=== PATIENT | female | born 1945 | race Caucasian/White ===

== ENCOUNTER 2016-08-22 01:46 | Observation (INO) ==
[2016-08-22 02:12] LABS: Basophils % 0.6 %; Eosinophils # 0.1 K/mcL (0.0-0.6); Eosinophils % 1.3 %; Hemoglobin 12.8 g/dL (11.5-15.4); Immature Granulocytes % 0.4 % (0-4); Lymphocytes # 2.5 K/mcL (0.6-4.6); Lymphocytes % 35.6 %; Mean Corpuscular Volume 90.5 fL (83.0-100.0); Mean Platelet Volume 9.9 fL (9.4-12.4); Monocytes # 0.9 K/mcL (0.0-1.3); Monocytes % 12.4 %; Neutrophils # 3.5 K/mcL (1.6-8.9); Platelet Count 217 K/mcL (140-400); Red Blood Count 4.42 M/mcL (3.82-4.97); Red Cell Distribution Width 14.5 % (11.5-14.5); Segmented Neutrophils % 49.7 %
--- NOTE | 2016-08-22 02:14 | Emergency Department Note ---
Disposition Clinical Impression: Chest pain Qualifiers: Chest pain type: unspecified Qualified Code(s): R07.9 - Chest pain, unspecified Disposition: Admitted As Inpatient Condition: Undetermined Referrals: NO,PCP [Primary Care Provider] - Forms: ED Satisfaction Letter Time of Disposition: 02:42 Chest Pain HPI - General Chief Complaint: ED Chest Pain Stated Complaint: CP Time Seen by Provider: 08/22/16 01:56 Source: patient Mode of arrival: ambulatory Limitations: no limitations Vital Signs Reviewed: Yes Nursing Notes Reviewed: Yes - History of Present Illness HPI Narrative: 70-year-old female with history of CAD, hypertension, hyperlipidemia, arrives [facility] emergency Department complaining of retrosternal chest pain that started yesterday morning when she first woke up and ambulated to the bathroom. The patient states that at the same time she had an elevation in her blood pressure. The patient states that she took 2 aspirin at that time. She is surgery feeling better after couple hours. The patient denied any other associated symptoms including dyspnea, nausea, vomiting, diaphoresis. The patient does state that she had a recent cardiac catheter back in June 2016 which revealed a mild disease, 20 and 30% lesions. She had no stents placed at that time. The patient states she takes her medications on a regular basis. She denies any other complaints or concerns at this time. Duration: intermittent, now resolved Pain Location: substernal Severity scale (1-10): 0 Quality: tightness Improves with: nothing Worsens with: exertion Treatments prior to arrival chest pain: aspirin - Related Data On Oral Contraceptives: No Home Medications Medication Instructions Recorded Confirmed Albuterol Sulfate [Proair Hfa] 1 puff IH BID 02/28/16 02/28/16 Alprazolam [Xanax 1 MG Tablet] 1 mg PO TID 02/28/16 02/28/16 Amlodipine [Norvasc] 2.5 mg PO DAILY 02/28/16 02/28/16 Estradiol 0.5 mg PO DAILY 02/28/16 02/28/16 Fexofenadine HCl [Allergy Relief] 180 mg PO DAILY 02/28/16 02/28/16 Fluticasone Propionate Nasal 2 spr NS DAILY 02/28/16 02/28/16 [Flonase] Gabapentin 600 mg PO TID 02/28/16 02/28/16 Iron Polysaccharide Complex [Pro 180 mg PO BID 02/28/16 02/28/16 Fe] Lisinopril [Zestril] 40 mg PO DAILY 02/28/16 02/28/16 Nitroglycerin 0.4 mg SL Q5M PRN 02/28/16 02/28/16 Oxybutynin [Ditropan] 5 mg PO BID 02/28/16 02/28/16 Oxycodone HCl 10 mg PO Q6H PRN 02/28/16 02/28/16 Propranolol HCl 40 mg PO DAILY 02/28/16 02/28/16 Ranitidine HCl [Zantac] 150 mg PO BID 02/28/16 02/28/16 Zolpidem [Ambien] 10 mg PO HS 02/28/16 02/28/16 Previous Rx's Medication Instructions Recorded Atorvastatin [Lipitor] 40 mg PO HS 30 Days 02/29/16 Carvedilol [Coreg] 3.125 mg PO BIDWM 30 Days 02/29/16 Isosorbide MONOnitrate (24 HR) 30 mg PO DAILY 30 Days 02/29/16 [Imdur] Allergies Allergy/AdvReac Type Severity Reaction Status Date / Time Iodinated Contrast Media - Allergy Hives Verified 08/22/16 01:51 Oral and [Iodinated Contrast Media - IV Dye] morphine Allergy Anaphylaxis Verified 08/22/16 01:51 Penicillins Allergy Anaphylaxis Verified 08/22/16 01:51 Review of Systems: Review of Systems Constitutional: Denies fevers, chills, night sweats HEENT: Denies headache, Respiratory: Denies cough, sputum change, hemoptysis, dyspnea Cardiac: Admits to chest pain, pressure, Denies palpitations, dyspnea on exertion, Admits to pedal edema Gastrointestinal: Denies abdominal pain, changes in bowel habits, vomiting, nausea, Genitourinary: Denies dysuria, hematuria, nocturia, change in frequency, urgency, incontinence Neurologic: Denies headaches, dizziness, syncope, focalized weakness, paraesthesias, weakness Musculoskeletal: Denies back pain, joint pain, myalgias All systems ED: reviewed and negative except as stated. Chest Pain PMH - Past Medical History Medical history: Reports: arthritis, asthma, COPD, fibromyalgia, GERD, GI bleed , hyperlipidemia, hypertension, kidney stones, osteoporosis, renal disease, other Surgical history: Reports: appendectomy, cataract, cholecystectomy, hysterectomy , JANINE/BSO, other Psychiatric history: Reports: anxiety, depression, panic disorder, other - Social History Smoking Status: Current every day smoker Alcohol use: Reports: none Drug use: Reports: none Physical Exam Physical Exam: General: Patient alert, no acute distress, not lethargic HEENT: Head normal inspection, atraumatic, PERRLA, oropharynx grossly intact and normal, trachea midline, no JVD Chest: Nontraumatic, nontender, normal chest rise CV: RRR with no murmurs, rubs, gallops Respiratory: Coarse breath sounds on auscultation bilaterally, no rales, rhonchi , wheezes. Abdomen: Normal inspection, Normal bowel sounds 4 quadrants, nontender to palpation : Patient deferred Extremities: Normal inspection, full range of motion, appropriate pulses, capillary refill under 2 seconds Neurological: Patient alert and oriented 3, cranial nerves II through XII grossly intact, GCS 15 Skin: Warm, intact, no rashes noted - General Limitations: no limitations General appearance: alert Course Vital Signs Temperature 98.3 F 08/22/16 01:48 Pulse Rate 76 08/22/16 01:48 Respiratory Rate 18 08/22/16 01:48 Blood Pressure 146/78 08/22/16 01:48 O2 Sat by Pulse Oximetry 100 08/22/16 01:48 Temperature 98.3 F 08/22/16 01:48 Pulse Rate 75 08/22/16 01:58 Respiratory Rate 14 08/22/16 01:58 Blood Pressure 173/84 08/22/16 01:58 O2 Sat by Pulse Oximetry 95 08/22/16 01:58 Oxygen Delivery Oxygen Delivery Room Air Chest Pain - MDM Narrative Medical decision making narrative: Patient's workup here in the emergency department demonstrates no acute process. Given the patient's previous medical history and symptoms I am concerned for ACS. At this time will admit the patient to the hospital for trending troponins. Accepted by Dr. Woodall. - Medical Records Medical records reviewed: Yes I reviewed the patient's medical records. - Lab Data Lab results reviewed: Yes I reviewed the patient's lab results. Result diagrams: 08/22/16 01:58 08/22/16 01:58 Lab Results 08/22/16 08/22/16 08/22/16 Range/Units 01:58 01:58 01:58 WBC 6.9 (4.3-11.1) K/mcL RBC 4.42 (3.82-4.97) M/mcL Hgb 12.8 (11.5-15.4) g/dL Hct 40.0 (35.3-44.9) % MCV 90.5 (83.0-100.0) fL MCH 29.0 (28.0-33.3) pg MCHC 32.0 (31.6-35.5) g/dL RDW 14.5 (11.5-14.5) % Plt Count 217 (140-400) K/mcL MPV 9.9 (9.4-12.4) fL Immature Gran % 0.4 (0-4) % Seg Neutrophils % 49.7 % Lymphocytes % 35.6 % Monocytes % 12.4 % Eosinophils % 1.3 % Basophils % 0.6 % Neutrophils # 3.5 (1.6-8.9) K/mcL Lymphocytes # 2.5 (0.6-4.6) K/mcL Monocytes # 0.9 (0.0-1.3) K/mcL Eosinophils # 0.1 (0.0-0.6) K/mcL Basophils # 0.0 (0.0-0.2) K/mcL Sodium 137 (136-145) mEq/L Potassium 4.0 (3.5-4.5) mEq/L Chloride 102 (98-109) mEq/L Carbon Dioxide 23 (19-29) mEq/L BUN 11 (7-20) mg/dL Creatinine 1.07 (0.57-1.11) mg/dL Est GFR ( Amer) > 60 (> 60) Est GFR (Non-Af Amer) 51 L (> 60) BUN/Creatinine Ratio 10 (6-26) Glucose 97 (70-99) mg/dL Calculated Osmolality 283 (280-300) Calcium 9.2 (8.6-10.8) mg/dL Troponin I 0.02 (0-0.03) ng/mL - Radiology Data Radiology results reviewed: Yes I reviewed the patient's radiology results. - EKG Data EKG attestation: Yes I reviewed and interpreted this EKG. EKG results narrative: Heart rate 74 bpm. MD interval 189 ms. QTc 420 ms. Normal axis. Normal sinus rhythm. No ST elevation or ST depression noted. Flipped T waves in V6 which is new from EKG from 02/29/2016. Heart Score - Score History: Moderately Suspicious EKG: Non Specific repolarisation Disturbance Age: Greater than 65 Risk Factors: Equal/Greater than 3 risk factor or history of atherosclerotic disease Troponin: Less than normal limit HEART Score Total: 6
--- NOTE | 2016-08-22 02:16 | Emergency Department Note ---
START Narrative - START START: I examined this patient and my medical decision-making was reviewed with the FLOOR ATTENDANT/PA/Advanced Practice Nurse/Resident Physician. I agree with the documented findings, disposition and treatment plan as described except to the extent set forth below. ED attending note: Patient seen with emergency medicine resident Dr. Ariza. Please see a copy of his note for details of the H&P, evaluation, management and disposition of this patient. We independently had [id number] contact with the patient Briefly: 70-year-old female with multivessel coronary artery disease. Last catheterization was told by her lockstitch front maker 4 months ago. There were no stents placed but no surgery recommended. Patient has had chest pain since yesterday morning after she got up. Patient appears nontoxic but slightly ill EKG shows T-wave inversion throughout the lateral leads especially V4 5 and 6 which appear to be new compared to an old EKG. Patient will get troponin CBC chemistry panel and a chest x-ray admission is anticipated. Disposition pending.
[2016-08-22 02:25] LABS: BUN/Creatinine Ratio 10 (6-26); Blood Urea Nitrogen 11 mg/dL (7-20); Calcium 9.2 mg/dL (8.6-10.8); Carbon Dioxide 23 mEq/L (19-29); Chloride 102 mEq/L (98-109); Glucose 97 mg/dL (70-99); Osmolality,Calculated 283 (280-300); Sodium 137 mEq/L (136-145); eGFR For African Americans > 60 (> 60); eGFR For Non-African Americans 51 (> 60)
[2016-08-22] MEDS ORDERED: *HR* HYDROmorphone (PF) 1 MG/ML SYRINGE IVP ONE (03:16)
[2016-08-22] MEDS: Nicotine 14 MG PATCH.TD24 TD SCH ×2 (03:33→21:46)
[2016-08-22] MEDS ORDERED: ALPRAZolam 1 MG TABLET PO PRN (05:52)
[2016-08-22] MEDS ORDERED: Naloxone 0.4 MG/ML INJ IVP PRN (07:35)
[2016-08-22] MEDS ORDERED: Nitroglycerin 0.4 MG TAB.SUBL SL PRN (07:37)
--- NOTE | 2016-08-22 07:44 | Internal Med History&Physical ---
Date of Encounter: 08/22/16 Time of Encounter: 07:44 Assessment and Plan (1) Chest pain, rule out acute myocardial infarction Current visit: No Status: Acute chest pain: Persistent chest pain, nonradiating, localized, and has a aggravating and relieving factors. Anginal chest pain. Was previously admitted in February 2016 for similar complaints. Noted that maximum troponin rise is 0.02. EKG reviewed. Echo: EF : 60-65%. Mild Diastolic dysfunction, No RWMA ( 02/28/2016) Cardiac cath:Mild Coronary disease . EF :65% ( 02/28/2016) Plan: -ASA -Beta blockers -Statins -Trend troponin - lipid panel in the morning -Possible home soon. (2) Hypertension Current visit: No Status: Chronic Will resume home medication. Qualifiers: Hypertension type: essential hypertension Qualified Code(s): I10 - Essential (primary) hypertension (3) Dyslipidemia Current visit: No Status: Chronic On statin and we will continue same (4) COPD (chronic obstructive pulmonary disease) Current visit: No Status: Chronic Chronic COPD. Active smoker. Not willing to quit smoking. We will try tomorrow again to convince her to quit smoking Qualifiers: COPD type: emphysema Emphysema type: unspecified Qualified Code(s): J43.9 - Emphysema, unspecified (5) DVT prophylaxis Current visit: Yes Status: Acute Abdomen: Medical decision making: This patient is a mild to moderate discomfort worsening , in spite of being on appropriate medication. Internal Medicine - H&P: HPI Chief complaint: chest pain Admitted From: Emergency Dept Plans for Post Hospital Care: Home History of present illness: 70/F PCP: Jaden Srinivasan. HPI: Patient was complaining of chest pain on morning around 7 AM when she got up. The pain was retrosternal in nature, nonradiating, localized, sharp , worsened with the breathing and relieved by rest. At that time patient measured her blood pressure and it was 218/126. Patient took her regular blood pressure medication and other medications and she noted that gradually her blood pressure settled down to the baseline. Patient did not call her PCP/911. Yesterday on a Wednesday around 4 PM in the evening patient had a similar episode of her chest pain. As per patient: Mild pain on Wednesday was much worse as compared to and that is the reason I decided to go to emergency room. Patient denies short of breath, dizziness, palpitation, nausea, vomiting, abdominal pain and diarrhea. Workup in the emergency room: Patient was evaluated in the emergency room. Baseline labs are drawn. Hospitalist was called to admit the patient to rule out ACS. Reason for admission: Chest pain to rule out ACS, TIMI3 Family history: Noncontributory Past Med Surg Social Fam HX - Past Medical History Medical history: arthritis, asthma, COPD, fibromyalgia, GERD, GI bleed, hyperlipidemia, hypertension, kidney stones, osteoporosis, renal disease, other Psychiatric history: anxiety, depression, panic disorder, other - Past Surgical History Surgical History: appendectomy, cataract, cholecystectomy, hysterectomy, JANINE/BSO , other - Social History Smoking Status: Current every day smoker Packs per day: 1/2-3/4 Smokeless Tobacco Status: No Alcohol use: none Drug use: none - Family History Father Living Status: Hx Family Cardiac Disorders: Yes Mother Living Status: Hx Family Cardiac Disorders: Yes (Bypass, HTN, HLD) Hx Family Respiratory Disorders: No Hx Family Cancer: No Hx Family GI Disorders: No Hx Family Genitourinary Disorders: No Hx Family Endocrine Disorder: Yes (DM) Hx Family Musculoskeletal Disorders: No Hx Family Neuromuscular Disorders: No Hx Family Neurologic Disorders: No Hx Family HEENT Disorders: No Hx Family Autoimmune Disorders: No Hx Family Reproductive Disorders: No Hx Family Psychosocial Disorders: No Hx Family Medical Disorders: No Internal Medicine - H&P: Meds Albuterol Sulfate [Proair Hfa] 1 puff IH BID 02/28/16 [History] Alprazolam [Xanax 1 MG Tablet] 1 mg PO TID 02/28/16 [History] Amlodipine [Norvasc] 2.5 mg PO DAILY 02/28/16 [History] Estradiol 0.5 mg PO DAILY 02/28/16 [History] Fexofenadine HCl [Allergy Relief] 180 mg PO DAILY 02/28/16 [History] Fluticasone Propionate Nasal [Flonase] 2 spr NS DAILY 02/28/16 [History] Gabapentin 600 mg PO TID 02/28/16 [History] Iron Polysaccharide Complex [Pro Fe] 180 mg PO BID 02/28/16 [History] Lisinopril [Zestril] 40 mg PO DAILY 02/28/16 [History] Nitroglycerin 0.4 mg SL Q5M PRN 02/28/16 [History] Oxybutynin [Ditropan] 5 mg PO BID 02/28/16 [History] Oxycodone HCl 10 mg PO Q6H PRN 02/28/16 [History] Propranolol HCl 40 mg PO DAILY 02/28/16 [History] Ranitidine HCl [Zantac] 150 mg PO BID 02/28/16 [History] Zolpidem [Ambien] 10 mg PO HS 02/28/16 [History] Atorvastatin [Lipitor] 40 mg PO HS 30 Days 02/29/16 [Rx] Carvedilol [Coreg] 3.125 mg PO BIDWM 30 Days 02/29/16 [Rx] Isosorbide MONOnitrate (24 HR) [Imdur] 30 mg PO DAILY 30 Days 02/29/16 [Rx] Allergies Iodinated Contrast Media - Oral and [Iodinated Contrast Media - IV Dye] Allergy (Verified 08/22/16 01:51) Hives morphine Allergy (Verified 08/22/16 01:51) Anaphylaxis Penicillins Allergy (Verified 08/22/16 01:51) Anaphylaxis All Systems PM: A 10-system review of systems was performed and is negative for pertinent findings except as documented above in the HPI. - Constitutional Constitutional: no chills, no fever(s), no night sweats - EENT Eyes: no change in vision, no discharge, no pain, no photophobia Ears: no ear discharge, no ear pain, no tinnitus Nose, mouth and throat: no dysphagia, no nasal discharge, no neck pain, no sore throat - Cardiovascular Cardiovascular ROS IM: no chest pain, no diaphoresis, no dyspnea, no lightheadedness, no palpitations, no syncope - Respiratory Respiratory: no cough, no dyspnea, no wheezing, no excessive phlegm production - Gastrointestinal Gastrointestinal: no abdominal pain, no diarrhea, no hematemesis, no hematochezia, no melena, no nausea, no vomiting - Genitourinary Genitourinary: no change in urinary stream, no dysuria, no flank pain, no hematuria - Musculoskeletal Musculoskeletal ROS IM: no numbness, no tingling - Integumentary Integumentary IM: no rash, no unusual bruising - Neurological Neurological ROS: no confusion, no convulsions, no focal weakness, no numbness, no tingling, no tremor(s) - Hematologic/Lymphatic Hematologic/Lymphatic: no easy bruising - Constitutional Vitals: Temp Pulse Resp BP Pulse Ox 97.5 F L 68 17 128/79 95 08/22/16 04:34 08/22/16 04:34 08/22/16 04:34 08/22/16 04:34 08/22/16 04:34 General appearance: Present: A&O X 3, pleasant, no acute distress, answers questions appropriately - Head Head exam: Present: atraumatic, normocephalic - Eye Eye exam: Present: PERRL, conjuntiva pink, sclera anicteric Pupils: Present: PERRL - Neck Neck exam general surgery: Present: supple, trachea midline. Absent: lymphadenopathy - Respiratory Respiratory exam: Present: CTAB. Absent: accessory muscle use, rales, rhonchi, wheezes - Cardiovascular Cardiovascular exam: Present: RRR, +S1, +S2. Absent: diastolic murmur, gallop, rubs, systolic murmur - GI/Abdominal GI/Abdominal exam: Present: normal bowel sounds, soft, no peritoneal signs. Absent: distended, tenderness - Extremities Exam Extremities exam: Present: warm, radial pulses palpable and symetrical. Absent : calf tenderness, cyanotic, pedal edema - Neurological Exam Neurological exam: Present: CN II-XII intact, oriented X3, no focal deficits. Absent: pronater drift, facial droop, speech deficit - Skin Skin exam: Present: dry, intact Internal Med - H&P Results - Labs CBC & Chem 7: 08/22/16 01:58 08/22/16 01:58 Labs: Labs discussed with the nursing staff/emergency room physician
[2016-08-22] MEDS: amLODIPine 5 MG TABLET PO SCH (08:44)
[2016-08-22] MEDS: IRON POLYSACCHARIDE COMPLEX 180 MG PO SCH ×2 (08:44→21:47)
[2016-08-22] MEDS: ALPRAZolam 1 MG TABLET PO SCH ×3 (08:44→21:47)
[2016-08-22] MEDS: Lisinopril 20 MG TABLET PO SCH (08:44)
[2016-08-22] MEDS: Loratadine 10 MG TABLET PO SCH (08:56)
[2016-08-22] MEDS: Gabapentin 300 MG CAPSULE PO SCH ×3 (08:56→21:47)
[2016-08-22] MEDS: Fluticasone Propionate Nasal 50 MCG/SPRAY BOTTLE NS SCH (08:57)
[2016-08-22] MEDS: Isosorbide MONOnitrate (24 HR) 30 MG TAB.ER.24H PO SCH (09:00)
[2016-08-22] MEDS ORDERED: Famotidine 20 MG TABLET PO SCH (09:00)
[2016-08-22] MEDS: *HR* OxyCODONE Immed Rel 5 MG TABLET PO PRN (17:22)
[2016-08-22] MEDS: *HR* Heparin 5,000 UNIT/ML VIAL SQ SCH (17:23)
[2016-08-23 01:35] LABS: Alanine Aminotransferase 7 Units/L (0-55); Albumin 3.2 g/dL (3.5-5.0); Albumin/Globulin Ratio 0.9 (1.1-2.2); Alkaline Phosphatase 92 Units/L (38-126); Aspartate Amino Transferase 12 Units/L (5-34); BUN/Creatinine Ratio 12 (6-26); Basophils % 0.6 %; Bilirubin,Total 0.3 mg/dL (0.2-1.2); Blood Urea Nitrogen 12 mg/dL (7-20); Calcium 8.7 mg/dL (8.6-10.8); Carbon Dioxide 28 mEq/L (19-29); Chloride 107 mEq/L (98-109); Chol/HDL Ratio 5.4 (0-4.9); Cholesterol 196 mg/dL (< 200); Eosinophils % 0.8 %; Globulin 3.7 g/dL (2.4-3.5); Glucose 107 mg/dL (70-99); HDL Cholesterol 36 mg/dL (40-59); Hematocrit 36.5 % (35.3-44.9); Hemoglobin 11.6 g/dL (11.5-15.4); Immature Granulocytes % 0.4 % (0-4); LDL Cholesterol,Calculated 96 mg/dL (0-99); Lymphocytes # 1.8 K/mcL (0.6-4.6); Lymphocytes % 36.2 %; Magnesium 2.2 mg/dL (1.6-2.6); Mean Corpuscular HGB Conc 31.8 g/dL (31.6-35.5); Mean Corpuscular Hemoglobin 28.7 pg (28.0-33.3); Mean Corpuscular Volume 90.3 fL (83.0-100.0); Mean Platelet Volume 10.6 fL (9.4-12.4); Monocytes # 0.7 K/mcL (0.0-1.3); Monocytes % 14.5 %; Neutrophils # 2.3 K/mcL (1.6-8.9); Osmolality,Calculated 292 (280-300); Platelet Count 182 K/mcL (140-400); Potassium 4.4 mEq/L (3.5-4.5); Red Blood Count 4.04 M/mcL (3.82-4.97); Red Cell Distribution Width 14.6 % (11.5-14.5); Segmented Neutrophils % 47.5 %; Sodium 141 mEq/L (136-145); Total Protein 6.9 g/dL (6.0-8.3); Triglycerides 318 mg/dL (< 150); eGFR For African Americans > 60 (> 60); eGFR For Non-African Americans 55 (> 60)
[2016-08-23] MEDS: *HR* Heparin 5,000 UNIT/ML VIAL SQ SCH (06:32)
[2016-08-23] MEDS ORDERED: Famotidine 20 MG TABLET PO SCH (07:30)
[2016-08-23] MEDS: Nicotine 14 MG PATCH.TD24 TD SCH (08:36)
[2016-08-23] MEDS: Loratadine 10 MG TABLET PO SCH (08:37)
[2016-08-23] MEDS: ALPRAZolam 1 MG TABLET PO SCH (08:38)
[2016-08-23] MEDS: Gabapentin 300 MG CAPSULE PO SCH (08:38)
[2016-08-23] MEDS: Lisinopril 20 MG TABLET PO SCH (08:38)
[2016-08-23] MEDS: Isosorbide MONOnitrate (24 HR) 30 MG TAB.ER.24H PO SCH (08:38)
[2016-08-23] MEDS: amLODIPine 5 MG TABLET PO SCH (08:38)
[2016-08-23] MEDS: Fluticasone Propionate Nasal 50 MCG/SPRAY BOTTLE NS SCH (08:42)
[2016-08-23] MEDS: IRON POLYSACCHARIDE COMPLEX 180 MG PO SCH (08:42)
[2016-08-23] MEDS: *HR* OxyCODONE Immed Rel 5 MG TABLET PO PRN (11:23)
--- NOTE | 2016-08-23 12:02 | Discharge Summary ---
Date of Encounter: 08/23/16 Time of Encounter: 09:30 - Discharge Diagnosis (1) Chest pain Priority: Primary Status: Resolved Comments: Patient denied chest pain on day of discharge. In further discussion with the patient, patient saying the pain felt more like a panic attack. Follow-up outpatient. Qualifiers: Chest pain type: unspecified Qualified Code(s): R07.9 - Chest pain, unspecified (2) Hypertension Priority: Secondary Status: Chronic Comments: Controlled with her home medications, follow up outpatient Qualifiers: Hypertension type: essential hypertension Qualified Code(s): I10 - Essential (primary) hypertension (3) Dyslipidemia Priority: Secondary Status: Chronic Comments: In review of her chart, she was seen in February 2016 and she was started on a statin at that time, it does not appear as if she is still on the statin, will restart (4) Anxiety about health Priority: Secondary Status: Chronic (5) COPD (chronic obstructive pulmonary disease) Priority: Secondary Status: Chronic Comments: No acute exacerbation Qualifiers: COPD type: emphysema Emphysema type: unspecified Qualified Code(s): J43.9 - Emphysema, unspecified (6) Nicotine dependence with nicotine-induced disorder Priority: Secondary Status: Chronic Comments: Declined smoking cessation counseling Qualifiers: Nicotine product type: cigarettes Qualified Code(s): F17.219 - Nicotine dependence, cigarettes, with unspecified nicotine-induced disorders (7) Fibromyalgia syndrome Priority: Secondary Status: Chronic (8) DVT prophylaxis Priority: Primary Status: Acute Comments: Subcutaneous heparin - Discharge Medications Prescriptions: Atorvastatin [Lipitor] 40 mg PO HS #30 tablet Dicyclomine [Bentyl] 10 mg PO QID #40 capsule Home Medications: Albuterol Sulfate [Proair Hfa] 1 puff IH Q4H PRN 02/28/16 [History] Alprazolam [Xanax 1 MG Tablet] 1 mg PO TID 02/28/16 [History] Estradiol 0.5 mg PO DAILY 02/28/16 [History] Fexofenadine HCl [Allergy Relief] 180 mg PO DAILY 02/28/16 [History] Fluticasone Propionate Nasal [Flonase] 2 spr NS DAILY 02/28/16 [History] Gabapentin 600 mg PO TID 02/28/16 [History] Iron Polysaccharide Complex [Pro Fe] 180 mg PO BID 02/28/16 [History] Lisinopril [Zestril] 40 mg PO DAILY 02/28/16 [History] Nitroglycerin 0.4 mg SL Q5M PRN 02/28/16 [History] Oxybutynin [Ditropan] 5 mg PO BID 02/28/16 [History] Oxycodone HCl 10 mg PO Q6H PRN 02/28/16 [History] Propranolol HCl 40 mg PO DAILY 02/28/16 [History] Ranitidine HCl [Zantac] 150 mg PO BID 02/28/16 [History] Zolpidem [Ambien] 10 mg PO HS 02/28/16 [History] Isosorbide MONOnitrate (24 HR) [Imdur] 30 mg PO DAILY 30 Days 02/29/16 [Rx] Aspirin Enteric Coated [Aspirin EC] 81 mg PO DAILY 08/22/16 [History] Cyclobenzaprine HCl 5 mg PO TID 08/22/16 [History] Amlodipine [Norvasc] 2.5 mg PO DAILY tablet 08/23/16 [Rx] Atorvastatin [Lipitor] 40 mg PO HS #30 tablet 08/23/16 [Rx] Carvedilol [Coreg] 3.125 mg PO BIDWM tablet 08/23/16 [Rx] Dicyclomine [Bentyl] 10 mg PO QID #40 capsule 08/23/16 [Rx] Allergies/Adverse Reactions: Allergies Iodinated Contrast Media - Oral and [Iodinated Contrast Media - IV Dye] Allergy (Verified 08/22/16 01:51) Hives morphine Allergy (Verified 08/22/16 01:51) Anaphylaxis Penicillins Allergy (Verified 08/22/16 01:51) Anaphylaxis Date of admission: 08/22/16 03:56 Primary care physician: Jaden Srinivasan MD Discharging clinician: Eun Arriaga Anticipated date of discharge: 08/23/16 - Patient Status Disposition: Home, Self-Care Condition: Fair Functional capacity at discharge: independent ambulation Overall status at discharge: patient is back to baseline - Discharge Instructions Follow Up With: Jaden Srinivasan MD [Primary Care Provider] - Additional Instructions: Follow-up with primary care provider in one to 2 weeks - Diet and Activity Activity: increase activity as tolerated Diet: low fat, low cholesterol, low salt diet Hospital course: Ms. Brice is a 70 year old female with past medical history of COPD, fibromyalgia, GERD, GI bleed, hyperlipidemia, hypertension, kidney stones, panic disorder, tobacco abuse. Patient presented to the emergency department of chest pain that started when she woke up and was retrosternally located, did not radiate, was localized and sharp and worsened with breathing and relieved by rest. Patient measured her blood pressure at home and it was 218/126. Her blood pressure then went down. Later on in that same evening, she had another episode of chest pain which was worse prompting her presentation to the emergency department. Workup in the emergency department unremarkable. Chest x -ray negative. Patient was admitted to the hospitalist service for further evaluation and management. Troponin negative 6. Patient was admitted and observed over the course of . Of note, she had an echocardiogram and a left heart catheter and February 2016. Her catheter revealed mild CAD. Patient denied chest pain or shortness of breath throughout this admission. She did complain of severe abdominal cramping and she was given a short supply of Bentyl to trial and instructed to follow up outpatient. Regarding her chest pain, patient stating she feels as if her anxiety and her nerves. If potentially precipitated this event. No signs to suggest acute coronary syndrome. She was discharged home in stable condition with close outpatient follow-up recommended. ITS Impressions Chest X-Ray 08/22/16 01:58 IMPRESSION: No acute cardiopulmonary disease. D/ / Carlos Huber MD / Carlos Huber MD Interpreting Provider: Carlos Huber MD - Time Spent with Patient Total time spent providing and/or coordinating discharge services: - Constitutional Vitals: Temp Pulse Resp BP Pulse Ox 97.5 F L 83 16 141/82 95 08/23/16 10:58 08/23/16 10:58 08/23/16 10:58 08/23/16 10:58 08/23/16 10:58 General appearance: Present: A&O X 3, pleasant, no acute distress, answers questions appropriately - Head Head exam: Present: atraumatic, normocephalic - Eye Eye exam: Present: PERRL, conjuntiva pink, sclera anicteric Pupils: Present: PERRL - Neck Neck exam general surgery: Present: supple, trachea midline. Absent: lymphadenopathy - Respiratory Respiratory exam: Present: decreased breath sounds (mildly), wheezes. Absent: accessory muscle use, rales, respiratory distress, rhonchi - Cardiovascular Cardiovascular exam: Present: RRR, +S1, +S2. Absent: diastolic murmur, gallop, rubs, systolic murmur - GI/Abdominal GI/Abdominal exam: Present: normal bowel sounds, soft, no peritoneal signs. Absent: distended, tenderness - Extremities Exam Extremities exam: Present: warm, radial pulses palpable and symetrical. Absent : calf tenderness, cyanotic, pedal edema - Neurological Exam Neurological exam: Present: alert, CN II-XII intact, normal gait, oriented X3, no focal deficits, strengths equal and symetr throughout. Absent: pronater drift, facial droop, speech deficit - Psychiatric Psychiatric exam: Present: anxious - Expanded Psychiatric Exam Focused psych exam: Present: psychomotor agitation, restlessness - Skin Skin exam: Present: dry, intact, normal color, warm
--- NOTE | 2016-08-24 09:02 | Electrocardiograph Report ---
[address] [place], [place] [address] Test Date: 2016-08-22 Pat Name: Jessica Brice Department: 105 Room: 3B46 Gender: F Pin Drafter: GLEN : 1945 Requested By: Dash Ariza Order Number: [id number] Reading MD: Gopal Schuler MD Measurements Intervals [place] Rate: 74 P: 65 CA: 189 QRS: 14 QRSD: 91 T: 81 QT: 400 QTc: 428 Interpretive Statements SINUS RHYTHM LATERAL ISCHEMIA BASELINE ARTIFACT Electronically Signed On 08-24-2016 9:01:11 EDT by Gopal Schuler MD
[2016-08-25 10:33] VITALS: BP 141/82
== END 2016-08-23 14:03 | disposition home or self-care (01) ==
LOC: 3BNU 01:46 → EMEROO 01:46 → 3BNU 04:20
PROVIDERS: ADMIT Internal Medicine Cardiovascular Disease; ATTEND Nurse Practitioner Family

== ENCOUNTER 2017-05-14 12:06 | Inpatient (IN) ==
[2017-05-14] MEDS ORDERED: 0.9 % Sodium Chloride 1,000 ML IVC ONE (12:17)
--- NOTE | 2017-05-14 12:25 | Emergency Department Note ---
Disposition Clinical Impression: Generalized weakness Anemia Qualifiers: Anemia type: unspecified type Qualified Code(s): D64.9 - Anemia, unspecified Disposition: Admitted As Inpatient Condition: Good Referrals: Jaden Srinivasan MD [Primary Care Provider] - Forms: ED Satisfaction Letter Recheck wound or abnormal lab - General Chief Complaint: ED Recheck/Abnormal Lab/Rx Stated Complaint: low WBCs Time Seen by Provider: 05/14/17 12:08 Source: patient, EMS Mode of arrival: EMS Limitations: no limitations Nursing Notes Reviewed: Yes Vital Signs Reviewed: Yes - History of Present Illness HPI Narrative: 71-year-old female history of high grade neuroendocrine carcinoma with metastasis, GI bleed requiring transfusion who presents to the ER with a chief complaint of abnormal labs. Patient states she was called by her regular provider due to low blood counts. She had labs checked yesterday as routine. She reports that she has felt weak over the last couple of weeks. States that she usually requires help being ambulatory but it is worsened. She denies any chest pain but has been short of breath. She has pain in her abdomen back and shoulder which is chronic. She is a poor historian but reports she has had chemotherapy recently at [place]. No fevers. No other complaints. Pt Subjective Complaint: abnormal lab(s) Symptoms Since Prior Visit: no new symptoms Context: called for abnormal lab result Associated symptoms: shortness of breath, other (weakness) - Related Data Home Medications Medication Instructions Recorded Confirmed ALPRAZolam [Xanax 1 MG Tablet] 1 mg PO TID 02/28/16 08/22/16 Albuterol Sulfate [Proair Hfa] 1 puff IH Q4H PRN 02/28/16 08/22/16 Estradiol 0.5 mg PO DAILY 02/28/16 08/22/16 Fexofenadine HCl [Allergy Relief] 180 mg PO DAILY 02/28/16 08/22/16 Fluticasone Propionate Nasal 2 spr NS DAILY 02/28/16 08/22/16 [Flonase] Gabapentin 600 mg PO TID 02/28/16 08/22/16 Iron Polysaccharide Complex [Pro 180 mg PO BID 02/28/16 08/22/16 Fe] Lisinopril [Zestril] 40 mg PO DAILY 02/28/16 08/22/16 Nitroglycerin 0.4 mg SL Q5M PRN 02/28/16 08/22/16 Oxybutynin [Ditropan] 5 mg PO BID 02/28/16 08/22/16 Oxycodone HCl 10 mg PO Q6H PRN 02/28/16 08/22/16 Propranolol HCl 40 mg PO DAILY 02/28/16 08/22/16 Ranitidine HCl [Zantac] 150 mg PO BID 02/28/16 08/22/16 Zolpidem [Ambien] 10 mg PO HS 02/28/16 08/22/16 Aspirin Enteric Coated [Aspirin EC] 81 mg PO DAILY 08/22/16 08/22/16 Cyclobenzaprine HCl 5 mg PO TID 08/22/16 08/22/16 Previous Rx's Medication Instructions Recorded Isosorbide MONOnitrate (24 HR) 30 mg PO DAILY 30 Days tab.er.24h 02/29/16 [Imdur] Atorvastatin [Lipitor] 40 mg PO HS #30 tablet 08/23/16 Carvedilol [Coreg] 3.125 mg PO BIDWM tablet 08/23/16 Dicyclomine [Bentyl] 10 mg PO QID #40 capsule 08/23/16 amLODIPine [Norvasc] 2.5 mg PO DAILY tablet 08/23/16 Hydromorphone HCl [Dilaudid] 2 mg PO Q4H PRN #90 tablet 04/26/17 Allergies Allergy/AdvReac Type Severity Reaction Status Date / Time Iodinated Contrast- Oral and Allergy Hives Verified 12/07/16 20:54 IV Dye [Iodinated Contrast Media - IV Dye] morphine Allergy Anaphylaxis Verified 12/07/16 20:54 nitrofurantoin Allergy Rash Verified 04/26/17 15:14 [From Macrobid] Penicillins Allergy Anaphylaxis Verified 12/07/16 20:54 azithromycin AdvReac Rash Verified 04/26/17 15:14 All systems ED: reviewed and negative except as stated. Constitutional: Denies: fever Cardiovascular: Reports: dyspnea on exertion. Denies: chest pain Respiratory: Reports: dyspnea Gastrointestinal: Reports: abdominal pain. Denies: nausea, vomiting Musculoskeletal: Reports: back pain. Denies: neck pain Past Medical History - Past Medical History Attestation: Yes The following information was validated with the patient. Source: patient Medical history: Reports: arthritis, asthma, COPD, fibromyalgia, GERD, GI bleed , hyperlipidemia, hypertension, kidney stones, osteoporosis, renal disease, other Surgical history: Reports: appendectomy, cataract, cholecystectomy, hysterectomy , JANINE/BSO, other Psychiatric history: Reports: anxiety, depression, panic disorder, other - Social History Smoking Status: Current some day smoker Smokeless Tobacco Status: No Alcohol use: Reports: none Drug use: Reports: none Physical Exam - General Limitations: no limitations General appearance: alert, cachectic - Head Head exam: atraumatic, normocephalic - Eye Eye exam: Present: normal appearance - ENT ENT exam: normal exam - Neck Neck exam: Present: normal inspection, full ROM - Chest Chest inspection: Present: normal inspection, symmetric chest wall rise - Respiratory Respiratory exam: Present: normal lung sounds bilaterally - Cardiovascular Cardiovascular exam: Present: regular rate, normal rhythm, normal heart sounds - Abdominal Exam Abdominal exam: Present: soft, tenderness. Absent: distention, guarding, rigidity - Extremities Exam Extremities exam: Present: normal inspection, full ROM - Expanded Upper Extremity Exam Shoulder exam: Present: normal inspection, full ROM Arm exam: Present: normal inspection, full ROM Elbow exam: Present: normal inspection, full ROM Forearm/Wrist exam: Present: normal inspection, full ROM Hand exam: Present: normal inspection, full ROM - Expanded Lower Extremity Exam Hip/Pelvis exam: Present: normal inspection, full ROM Upper leg exam: Present: normal inspection, full ROM Knee exam: Present: normal inspection, full ROM Lower leg exam: Present: normal inspection, full ROM Ankle exam: Present: normal inspection, full ROM Foot/toe exam: Present: normal inspection, full ROM - Neurological Exam Neurological exam: Present: alert, other (GCS 15. Nonfocal exam.) - Psychiatric Psychiatric exam: Present: normal affect - Skin Skin exam: Present: warm, dry Course Course Narrative: Patient seen and examined. Vital signs reviewed. We will recheck her labs for anemia. - Reevaluation(s) Reevaluation #1: Discussed results of lab work and imaging with the patient. Vital Signs Temperature 98 F 05/14/17 12:08 Pulse Rate 92 05/14/17 12:08 Respiratory Rate 18 05/14/17 12:08 Blood Pressure 170/73 05/14/17 12:08 O2 Sat by Pulse Oximetry 95 05/14/17 12:08 Temperature 98 F 05/14/17 12:08 Pulse Rate 92 05/14/17 12:08 Respiratory Rate 18 05/14/17 12:08 Blood Pressure 170/73 05/14/17 12:08 O2 Sat by Pulse Oximetry 95 05/14/17 12:08 Oxygen Delivery Oxygen Delivery Room Air Recheck wound or abnormal lab - MDM Narrative Medical decision making narrative: This documentation is done with the assistance of Dragon dictation. Despite efforts to ensure accuracy, there may be inaccuracies in lens blocker or spelling and typographical errors. I examined this patient and my medical decision-making was reviewed with the Resident Physician. I agree with the documented findings, disposition and treatment plan as described except to the extent set forth below. Patient seen on arrival with Dr. Clifford, I agree with his evaluation and management plan, I supervised the care of the patient stay. Patient was sent in by primary care she had blood work drawn yesterday for her cancer and set her blood count was low and sent her in. Looks like she did have a drop in hemoglobin last couple months her white count is normal her RBCs are low. She has had a history of GI bleed in the past. She denies dark colored stools this time. She had a fall yesterday which she said was mechanical she said she struck her shoulder but she thinks okay. Good movement here. She said her primary care physician evaluated for that yesterday and did not find anything new. Recheck her labs and cells are 24 hours old and reassessed most likely she will need admission. Also social work lecturer talk with her to see if she has any Reser's needs at home. Patient's agreement with this plan. 1337 hrs.: Her guaiac is negative. With her drop in hemoglobin is significant from her last hemoglobin however that was a few years ago. She has also had what sounds like fall versus syncope at home; we will bring her into the hospital. Further workup. She is in agreement with this plan. We have also had social work lecturer touch base with her also. Impression is status post fall, anemia, history of cancer Humerus X-Ray 05/14/17 13:01 IMPRESSION: No acute abnormalities. Mild degenerative changes to the AC joint. D/ / 05/14/2017 13:22:21 Willy Wadsworth MD / earnold Interpreting Provider: Willy Wadsworth MD - Lab Data Lab results reviewed: Yes I reviewed the patient's lab results. Result diagrams: 05/14/17 12:30 05/14/17 12:30 Lab Results 05/14/17 05/14/17 05/14/17 Range/Units 12: 12:30 12:30 WBC 9.8 (4.3-11.1) K/mcL RBC 3.33 L (3.82-4.97) M/mcL Hgb 7.5 L (11.5-15.4) g/dL Hct 25.9 L (35.3-44.9) % MCV 77.8 L (83.0-100.0) fL MCH 22.5 L (28.0-33.3) pg MCHC 29.0 L (31.6-35.5) g/dL RDW 19.9 H (11.5-14.5) % Plt Count 166 (140-400) K/mcL MPV 9.8 (9.4-12.4) fL Immature Gran % 4.9 H (0-4) % Seg Neutrophils % 68.2 % Lymphocytes % 11.9 % Monocytes % 14.4 % Eosinophils % 0.2 % Basophils % 0.4 % Neutrophils # 6.7 (1.6-8.9) K/mcL Lymphocytes # 1.2 (0.6-4.6) K/mcL Monocytes # 1.4 H (0.0-1.3) K/mcL Eosinophils # 0.0 (0.0-0.6) K/mcL Basophils # 0.0 (0.0-0.2) K/mcL Nucleated RBCs/100 WBC 1.4 H (0) /100 WBC PT 11.6 (9.4-12.1) Seconds INR 1.1 APTT 26.6 (26.0-36.0) Seconds Sodium (136-145) mEq/L Potassium (3.5-5.1) mEq/L Chloride (98-107) mEq/L Carbon Dioxide (23-29) mEq/L BUN (8-23) mg/dL Creatinine (0.60-1.20) mg/dL Est GFR ( Amer) (> 60) Est GFR (Non-Af Amer) (> 60) BUN/Creatinine Ratio (6-26) Glucose (70-105) mg/dL Calculated Osmolality (280-300) Calcium (8.6-10.3) mg/dL Troponin I (< 0.04) ng/mL Blood Type O POSITIVE Antibody Screen NEGATIVE 05/14/17 05/14/17 Range/Units 12:30 12:30 WBC (4.3-11.1) K/mcL RBC (3.82-4.97) M/mcL Hgb (11.5-15.4) g/dL Hct (35.3-44.9) % MCV (83.0-100.0) fL MCH (28.0-33.3) pg MCHC (31.6-35.5) g/dL RDW (11.5-14.5) % Plt Count (140-400) K/mcL MPV (9.4-12.4) fL Immature Gran % (0-4) % Seg Neutrophils % % Lymphocytes % % Monocytes % % Eosinophils % % Basophils % % Neutrophils # (1.6-8.9) K/mcL Lymphocytes # (0.6-4.6) K/mcL Monocytes # (0.0-1.3) K/mcL Eosinophils # (0.0-0.6) K/mcL Basophils # (0.0-0.2) K/mcL Nucleated RBCs/100 WBC (0) /100 WBC PT (9.4-12.1) Seconds INR APTT (26.0-36.0) Seconds Sodium 135 L (136-145) mEq/L Potassium 3.7 (3.5-5.1) mEq/L Chloride 103 (98-107) mEq/L Carbon Dioxide 26 (23-29) mEq/L BUN 10 (8-23) mg/dL Creatinine 0.51 L (0.60-1.20) mg/dL Est GFR ( Amer) > 60 (> 60) Est GFR (Non-Af Amer) > 60 (> 60) BUN/Creatinine Ratio 20 (6-26) Glucose 116 H (70-105) mg/dL Calculated Osmolality 280 (280-300) Calcium 8.1 L (8.6-10.3) mg/dL Troponin I < 0.03 (< 0.04) ng/mL Blood Type Antibody Screen - Radiology Data Radiology results reviewed: Yes I reviewed the patient's radiology results. Humerus X-Ray 05/14/17 13:01 IMPRESSION: No acute abnormalities. Mild degenerative changes to the AC joint. D/ / 05/14/2017 13:22:21 Willy Wadsworth MD / earnold Interpreting Provider: Willy Wadsworth MD - EKG Data EKG attestation: Yes I reviewed and interpreted this EKG. EKG results narrative: EKG demonstrates sinus rhythm with a rate of 89 bpm. Normal axis. Normal intervals. Normal R-wave progression. No gross ST elevations or depressions. No acute ischemic findings. No significant changes from previous EKG dated 12/25. Chelsea - Chelsea Situation: Demographics, MOA Background: Presenting Complaint, Relevant PMH, Meds, & Allergies Assessment: Course and respsone to treatment, Exam Concerns, Patient/Family Expectation, Pertinant Lab Results Recommendation: Barrier(s) to disposition, Recommendation based on pending studies, treatments, or consults Chelsea Report Given to: Dr. Wendy Tran Repor Time: 14:15
[2017-05-14 12:43] LABS: Basophils % 0.4 %; Eosinophils % 0.2 %; Hematocrit 25.9 % (35.3-44.9); Immature Granulocytes % 4.9 % (0-4); Lymphocytes # 1.2 K/mcL (0.6-4.6); Lymphocytes % 11.9 %; Mean Corpuscular Hemoglobin 22.5 pg (28.0-33.3); Mean Corpuscular Volume 77.8 fL (83.0-100.0); Mean Platelet Volume 9.8 fL (9.4-12.4); Monocytes # 1.4 K/mcL (0.0-1.3); Monocytes % 14.4 %; Neutrophils # 6.7 K/mcL (1.6-8.9); Nucleated Red Blood Cells 1.4 /100 WBC (0); Platelet Count 166 K/mcL (140-400); Red Blood Count 3.33 M/mcL (3.82-4.97); Red Cell Distribution Width 19.9 % (11.5-14.5); Segmented Neutrophils % 68.2 %
[2017-05-14 12:47] LABS: Hemoglobin 7.5 g/dL (11.5-15.4)
[2017-05-14 12:48] LABS: INR 1.1; Prothrombin Time 11.6 Seconds (9.4-12.1)
[2017-05-14 12:51] LABS: Activated Partial Thrombo Time 26.6 Seconds (26.0-36.0)
[2017-05-14 12:59] LABS: BUN/Creatinine Ratio 20 (6-26); Blood Urea Nitrogen 10 mg/dL (8-23); Calcium 8.1 mg/dL (8.6-10.3); Carbon Dioxide 26 mEq/L (23-29); Chloride 103 mEq/L (98-107); Glucose 116 mg/dL (70-105); Osmolality,Calculated 280 (280-300); Potassium 3.7 mEq/L (3.5-5.1); Sodium 135 mEq/L (136-145); eGFR For African Americans > 60 (> 60); eGFR For Non-African Americans > 60 (> 60)
[2017-05-14 14:19] LABS: Bilirubin,Urine Negative (Negative); Blood,Urine Negative (Negative); Clarity,Urine Cloudy (Clear); Color,Urine Yellow (Yellow); Glucose,Urine (UA) Normal (Normal); Ketones,Urine Negative (Negative); Leukocyte Esterase,Urine Negative (Negative); Nitrite,Urine Negative (Negative); PH,Urine 6.5 pH Units (5.0-8.0); Protein,Urine Trace mg/dL (Neg-Trace); Specific Gravity,Urine 1.012 (1.010-1.025); Urobilinogen,Urine Normal (Normal)
[2017-05-14 14:29] LABS: Bacteria,Urine Few per hpf (None-Few); RBC,Urine 0-3 per hpf (0-3); Squamous Epithelial Cell,Urine Few per lpf (None-Few); WBC,Urine 0-3 per hpf (0-3)
[2017-05-14] MEDS ORDERED: *HR* HYDROmorphone 2 MG TABLET PO PRN (16:47)
[2017-05-14] MEDS ORDERED: Nitroglycerin 0.4 MG TAB.SUBL SL PRN (16:47)
[2017-05-14] MEDS: Nicotine 21 MG PATCH.TD24 TD SCH (17:36)
--- NOTE | 2017-05-14 18:02 | Internal Med History&Physical ---
Date of Encounter: 05/16/17 Time of Encounter: 04:00 Assessment and Plan (1) Anemia Current visit: Yes Status: Acute There is no evidence of active bleeding .We will recheck H&H every 6 hours and we will transfuse for hemoglobin less than 7, would obtain iron studies, folic acid, and vitamin B-12 level. (2) Generalized weakness Current visit: Yes Status: Acute Most likely secondary to worsening of anemia, would obtain physical therapy consult and occupational therapy and and social service to consider placement for getting difficulties or ambulate. (3) Metastatic lung cancer (metastasis from lung to other site) Current visit: No Status: Acute Qualifiers: Laterality: unspecified laterality Qualified Code(s): C34.90 - Malignant neoplasm of unspecified part of unspecified bronchus or lung (4) Hypertension Current visit: No Status: Chronic We will continue home meds Qualifiers: Hypertension type: unspecified Qualified Code(s): I10 - Essential (primary ) hypertension (5) Dyslipidemia Current visit: No Status: Chronic We will continue home statin and obtain fasting lipid profile in a.m. (6) COPD (chronic obstructive pulmonary disease) Current visit: No Status: Chronic We will continue home maintenance therapy and start the patient in when necessary DuoNeb Qualifiers: COPD type: chronic bronchitis Chronic bronchitis type: unspecified Qualified Code(s): J42 - Unspecified chronic bronchitis (7) Nicotine dependence with nicotine-induced disorder Current visit: No Status: Chronic We will provide nicotine patch Qualifiers: Nicotine product type: cigarettes Qualified Code(s): F17.219 - Nicotine dependence, cigarettes, with unspecified nicotine-induced disorders (8) DVT prophylaxis Current visit: No Status: Acute We will place the patient on SCD. Internal Medicine - H&P: HPI Chief complaint: Abnormal lab History of present illness: Ms. Brice is a 71 year old female with h/o history of high grade neuroendocrine carcinoma with metastasis, GI bleed requiring transfusion who presents to the ER with a chief complaint of abnormal labs that was ordered by her primary care provider. She reports that she has felt weak over the last couple of weeks and progressive worsening of her inability to ambulate. . Laboratory data reviewed anemia with hemoglobin is not 8, she was admitted for further evaluation and management, and criminal justice social worker was consulted to help with placement. Past Med Surg Social Fam HX - Past Medical History Medical history: arthritis, asthma, cancer, COPD, fibromyalgia, GERD, GI bleed, hyperlipidemia, hypertension, kidney stones, osteoporosis, renal disease, other Psychiatric history: anxiety, depression, panic disorder, other - Past Surgical History Surgical History: appendectomy, cataract, cholecystectomy, hysterectomy, JANINE/BSO , other - Social History Smoking Status: Current every day smoker Packs per day: 1 Smokeless Tobacco Status: No Alcohol use: none Drug use: none - Family History Father Living Status: Hx Family Cardiac Disorders: Yes Mother Living Status: Hx Family Cardiac Disorders: Yes Hx Family Respiratory Disorders: Yes ("black lung") Hx Family Cancer: No Hx Family GI Disorders: No Hx Family Endocrine Disorder: Yes (DM) Hx Family Neuromuscular Disorders: No Hx Family Neurologic Disorders: No Hx Family HEENT Disorders: No Hx Family Autoimmune Disorders: No Internal Medicine - H&P: Meds ALPRAZolam [Xanax 1 MG Tablet] 1 mg PO TID 02/28/16 [History] Albuterol Sulfate [Proair Hfa] 1 puff IH Q4H PRN 02/28/16 [History] Estradiol 0.5 mg PO DAILY 02/28/16 [History] Fexofenadine HCl [Allergy Relief] 180 mg PO DAILY 02/28/16 [History] Fluticasone Propionate Nasal [Flonase] 2 spr NS DAILY 02/28/16 [History] Gabapentin 600 mg PO TID 02/28/16 [History] Iron Polysaccharide Complex [Pro Fe] 180 mg PO BID 02/28/16 [History] Lisinopril [Zestril] 40 mg PO DAILY 02/28/16 [History] Nitroglycerin 0.4 mg SL Q5M PRN 02/28/16 [History] Oxycodone HCl 10 mg PO Q4H PRN 02/28/16 [History] Propranolol HCl 40 mg PO DAILY 02/28/16 [History] Ranitidine HCl [Zantac] 150 mg PO BID 02/28/16 [History] Zolpidem [Ambien] 10 mg PO HS 02/28/16 [History] Isosorbide MONOnitrate (24 HR) [Imdur] 30 mg PO DAILY 30 Days tab.er.24h [Rx] Aspirin Enteric Coated [Aspirin EC] 81 mg PO DAILY 08/22/16 [History] Cyclobenzaprine HCl 5 mg PO TID PRN 08/22/16 [History] Dicyclomine [Bentyl] 10 mg PO QID #40 capsule 08/23/16 [Rx] amLODIPine [Norvasc] 2.5 mg PO DAILY tablet 08/23/16 [Rx] Hydromorphone HCl [Dilaudid] 2 mg PO Q4H PRN #90 tablet 04/26/17 [Rx] Dronabinol [Marinol] 2.5 mg PO BID 05/14/17 [History] 3 Allergy/AdvReac Type Severity Reaction Status Date / Time Iodinated Contrast- Oral and Allergy Hives Verified 12/07/16 20:54 IV Dye [Iodinated Contrast Media - IV Dye] morphine Allergy Anaphylaxis Verified 12/07/16 20:54 nitrofurantoin Allergy Rash Verified 04/26/17 15:14 [From Macrobid] Penicillins Allergy Anaphylaxis Verified 12/07/16 20:54 azithromycin AdvReac Rash Verified 04/26/17 15:14 ROS unobtainable: due to mental status All Systems PM: A 10-system review of systems was performed and is negative for pertinent findings except as documented above in the HPI. - Constitutional Vitals: Temp Pulse Resp BP Pulse Ox 98.1 F 88 15 110/64 95 05/14/17 15:23 05/14/17 15:23 05/14/17 15:23 05/14/17 15:23 05/14/17 15:23 General appearance: Present: pleasant, no acute distress - Neck Neck exam general surgery: Present: supple, trachea midline. Absent: lymphadenopathy - Respiratory Respiratory exam: Present: CTAB. Absent: accessory muscle use, rales, rhonchi, wheezes - Cardiovascular Cardiovascular exam: Present: RRR, +S1, +S2. Absent: diastolic murmur, gallop, rubs, systolic murmur - GI/Abdominal GI/Abdominal exam: Present: normal bowel sounds, soft, no peritoneal signs. Absent: distended, tenderness Internal Med - H&P Results - Labs CBC & Chem 7: 05/15/17 00:46 05/15/17 00:46
[2017-05-14] MEDS ORDERED: Acetaminophen 325 MG TABLET PO PRN (18:18)
[2017-05-14] MEDS ORDERED: Ondansetron ODT 4 MG TAB.RAPDIS SL PRN (18:18)
[2017-05-14] MEDS ORDERED: Mag Hydrox/Al Hydrox/Simeth 30 ML UDC PO PRN (18:18)
[2017-05-14] MEDS ORDERED: *HR* Morphine 2 MG/ML SYRINGE IVP PRN (18:18)
[2017-05-14] MEDS ORDERED: Naloxone 0.4 MG/ML INJ IVP PRN (18:18)
[2017-05-14] MEDS: 0.9 % Sodium Chloride 1,000 ML IVC SCH (18:43)
[2017-05-14 19:14] LABS: Hematocrit 24.6 % (35.3-44.9); Hemoglobin 7.1 g/dL (11.5-15.4)
[2017-05-14] MEDS: ALPRAZolam 1 MG TABLET PO SCH (19:55)
[2017-05-14] MEDS: Gabapentin 300 MG CAPSULE PO SCH (19:55)
[2017-05-14] MEDS: Famotidine 20 MG TABLET PO SCH (19:55)
[2017-05-15 01:10] LABS: Basophils % 0.2 %; Eosinophils % 0.4 %; Hematocrit 23.1 % (35.3-44.9); Hemoglobin 6.5 g/dL (11.5-15.4); Immature Granulocytes % 5.7 % (0-4); Lymphocytes # 1.1 K/mcL (0.6-4.6); Lymphocytes % 13.4 %; Mean Corpuscular HGB Conc 28.1 g/dL (31.6-35.5); Mean Corpuscular Hemoglobin 22.1 pg (28.0-33.3); Mean Corpuscular Volume 78.6 fL (83.0-100.0); Mean Platelet Volume 10.2 fL (9.4-12.4); Monocytes # 1.2 K/mcL (0.0-1.3); Monocytes % 14.2 %; Neutrophils # 5.4 K/mcL (1.6-8.9); Nucleated Red Blood Cells 1.1 /100 WBC (0); Platelet Count 136 K/mcL (140-400); Red Blood Count 2.94 M/mcL (3.82-4.97); Red Cell Distribution Width 19.6 % (11.5-14.5); Segmented Neutrophils % 66.1 %
[2017-05-15 01:14] LABS: INR 1.1
[2017-05-15 01:17] LABS: Activated Partial Thrombo Time 24.2 Seconds (26.0-36.0)
[2017-05-15] MEDS: Iron Polysaccharide Complex 150 MG CAPSULE PO SCH ×3 (01:23→22:38)
[2017-05-15 02:10] LABS: Alanine Aminotransferase 21 Units/L (7-52); Albumin 2.4 g/dL (3.5-5.7); Albumin/Globulin Ratio 0.8 (1.1-2.2); Alkaline Phosphatase 363 Units/L (34-104); Aspartate Amino Transferase 107 Units/L (13-39); BUN/Creatinine Ratio 18 (6-26); Bilirubin,Total 0.7 mg/dL (0.3-1.0); Blood Urea Nitrogen 9 mg/dL (8-23); Calcium 7.5 mg/dL (8.6-10.3); Carbon Dioxide 24 mEq/L (23-29); Chloride 106 mEq/L (98-107); Chol/HDL Ratio 9.3 (0-4.9); Cholesterol 148 mg/dL (< 200); Globulin 3.1 g/dL (2.4-3.5); Glucose 107 mg/dL (70-105); HDL Cholesterol 16 mg/dL (40-59); LDL Cholesterol,Calculated 95 mg/dL (0-99); Magnesium 1.6 mg/dL (1.6-2.6); Osmolality,Calculated 279 (280-300); Phosphorous < 1.0 mg/dL (2.7-4.5); Potassium 3.7 mEq/L (3.5-5.1); Sodium 135 mEq/L (136-145); Total Protein 5.5 g/dL (6.4-8.9); Triglycerides 185 mg/dL (< 150); eGFR For African Americans > 60 (> 60); eGFR For Non-African Americans > 60 (> 60)
[2017-05-15 02:24] LABS: Anisocytosis 1+ (Not Present); Polychromasia 1+ (Not Present)
[2017-05-15 02:25] LABS: Platelet Estimate Slight Decrease (Normal)
[2017-05-15] MEDS: 0.9 % Sodium Chloride 1,000 ML IVC SCH (04:17)
[2017-05-15] MEDS: *HR* OxyCODONE Immed Rel 5 MG TABLET PO PRN ×3 (04:18→22:37)
[2017-05-15] MEDS: *HR* Heparin 5,000 UNIT/ML VIAL SQ SCH ×2 (06:20→16:45)
[2017-05-15] MEDS: Loratadine 10 MG TABLET PO SCH (07:51)
[2017-05-15] MEDS: Isosorbide MONOnitrate (24 HR) 30 MG TAB.ER.24H PO SCH (07:51)
[2017-05-15] MEDS: Aspirin Enteric Coated 81 MG Tablet PO SCH (07:51)
[2017-05-15] MEDS: Gabapentin 300 MG CAPSULE PO SCH ×3 (07:51→22:37)
[2017-05-15] MEDS: Famotidine 20 MG TABLET PO SCH ×2 (07:51→22:38)
[2017-05-15] MEDS: amLODIPine 5 MG TABLET PO SCH (07:51)
[2017-05-15] MEDS: Nicotine 21 MG PATCH.TD24 TD SCH (07:52)
[2017-05-15] MEDS: Lisinopril 20 MG TABLET PO SCH (07:52)
[2017-05-15] MEDS: ALPRAZolam 1 MG TABLET PO SCH ×3 (07:52→22:38)
--- NOTE | 2017-05-15 10:23 | Internal Med Progress Note ---
<Von Leyva - Last Filed: 05/15/17 12:37> Date of Encounter: 05/15/17 Time of Encounter: 10:20 - Assessment and plan (1) Anemia Current Visit: Yes Status: Acute Assessment and plan: There is no evidence of active bleeding. Patient did have a Hemoccult done in the emergency department that was negative. 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 She has had increased weakness. Patient was seen here in the inpatient by oncology she did undergo chemotherapy in January 2017. The anemia is most likely secondary to the chemotherapy. We will check H&H daily. plan is to transfuse if hemoglobin is less than 7. Today her hemoglobin was 6.5 so she will undergo blood transfusion receiving 2 units at this time. Qualifiers: Anemia type: unspecified type Qualified Code(s): D64.9 - Anemia, unspecified (2) Generalized weakness Current Visit: Yes Status: Acute Assessment and plan: This most likely is secondary to worsening of her anemia sr. social media & mobile manager has been consulted for possible placement but are out of the office until early next week due to the holiday. Patient does have a hard time ambulating we will also get PT and OT consults. Those are pending. (3) Metastatic lung cancer (metastasis from lung to other site) Current Visit: No Status: Acute Assessment and plan: Stable states her last chemotherapy was not long ago done in [place]. Patient was seen by oncology here who did give her chemotherapy but patient has since decided to stop her chemotherapy. Due to patient's generalized weakness and no longer getting treatment we will consult palliative to have them talk with her and discuss a plan going forward. We will await palliative recommendations. Qualifiers: Laterality: unspecified laterality Qualified Code(s): C34.90 - Malignant neoplasm of unspecified part of unspecified bronchus or lung (4) Hypertension Current Visit: No Status: Chronic Assessment and plan: Currently stable. We will continue home meds. Qualifiers: Hypertension type: unspecified Qualified Code(s): I10 - Essential (primary ) hypertension (5) Dyslipidemia Current Visit: No Status: Chronic Assessment and plan: Stable Continue home statin. (6) COPD (chronic obstructive pulmonary disease) Current Visit: No Status: Chronic Assessment and plan: Stable Continue home maintenance therapy and start DuoNeb's when needed. Oxygen 2 L as needed. Qualifiers: COPD type: chronic bronchitis Chronic bronchitis type: unspecified Qualified Code(s): J42 - Unspecified chronic bronchitis (7) Nicotine dependence with nicotine-induced disorder Current Visit: No Status: Chronic Assessment and plan: We will provide nicotine patch. Did talk to patient about smoking cessation she will not do this further. Patient does have 20 year pack history Qualifiers: Nicotine product type: cigarettes Qualified Code(s): F17.219 - Nicotine dependence, cigarettes, with unspecified nicotine-induced disorders (8) DVT prophylaxis Current Visit: No Status: Acute Assessment and plan: 5000 units heparin subcutaneous twice a day - Subjective Interval history: Patient states she is doing well today. Says she is still having pain in her entire body which is normal for her. She says the pain medication is given to her to take the edge off but she still does have a dull ache. This is normal for her. She said she still does feel very weak and really she cannot do her normal daily activities. Patient otherwise having no pain complaints included chest pain, shortness of breath, fevers, nausea, vomiting. There is overnight events. - Constitutional Vitals: Temp Pulse Resp BP Pulse Ox 98.8 F 97 20 156/85 91 05/15/17 06:44 05/15/17 06:44 05/15/17 06:44 05/15/17 06:44 05/15/17 06:44 General appearance: Present: pleasant, no acute distress - Head Head exam: Present: atraumatic, normocephalic - Eye Eye exam: Present: PERRL, conjuntiva pink, sclera anicteric Pupils: Present: PERRL - Neck Neck exam general surgery: Present: supple, trachea midline. Absent: lymphadenopathy - Respiratory Respiratory exam: Present: CTAB. Absent: accessory muscle use, rales, rhonchi, wheezes - Cardiovascular Cardiovascular exam: Present: RRR, +S1, +S2. Absent: diastolic murmur, gallop, rubs, systolic murmur - GI/Abdominal GI/Abdominal exam: Present: normal bowel sounds, soft, tenderness (Mild diffuse tenderness no signs of rigidity or surgical abdomen.), no peritoneal signs. Absent: distended - Extremities Exam Extremities exam: Present: warm, radial pulses palpable and symmetrical. Absent : calf tenderness, cyanotic, pedal edema - Neurological Exam Neurological exam: Present: CN II-XII intact, no focal deficits. Absent: pronater drift, facial droop, speech deficit - Skin Skin exam: Present: dry, intact Internal Medicine: Result - Labs CBC & Chem 7: 05/15/17 00:46 05/15/17 00:46 Labs: Short CBC 05/14/17 05/15/17 Range/Units 18:39 00:46 WBC 8.1 (4.3-11.1) K/mcL Hgb 7.1 L 6.5 L (11.5-15.4) g/dL Hct 24.6 L 23.1 L (35.3-44.9) % Plt Count 136 L (140-400) K/mcL Neutrophils # 5.4 (1.6-8.9) K/mcL BMP 05/15/17 00:46 Sodium 135 L Potassium 3.7 Chloride 106 Carbon Dioxide 24 BUN 9 Creatinine 0.50 L Glucose 107 H Calcium 7.5 L Cardiac Enzymes 05/14/17 05/15/17 05/15/17 Range/Units 18:39 00:46 06:39 Troponin I < 0.03 < 0.03 0.03 (< 0.04) ng/mL Liver Function 05/15/17 Range/Units 00:46 Total Bilirubin 0.7 (0.3-1.0) mg/dL AST 107 H (13-39) Units/L ALT 21 (7-52) Units/L Alkaline Phosphatase 363 H (34-104) Units/L Albumin 2.4 L (3.5-5.7) g/dL - ABG Interpretation ABG results: PT/INR, D-dimer PT 12.0 Seconds (9.4-12.1) 05/15/17 00:46 Consult Discharge Plan - Plan Referrals: Jaden Srinivasan MD [Primary Care Provider] - <Cristopher Singh T - Last Filed: 05/15/17 14:42> Date of Encounter: 05/15/17 - Constitutional Vitals: Temp Pulse Resp BP Pulse Ox 98.2 F 85 18 125/66 92 05/15/17 14:31 05/15/17 14:31 05/15/17 14:31 05/15/17 14:08 05/15/17 14:31 Internal Medicine: Result - Labs CBC & Chem 7: 05/15/17 00:46 05/15/17 00:46 Labs: Short CBC 05/14/17 05/15/17 Range/Units 18:39 00:46 WBC 8.1 (4.3-11.1) K/mcL Hgb 7.1 L 6.5 L (11.5-15.4) g/dL Hct 24.6 L 23.1 L (35.3-44.9) % Plt Count 136 L (140-400) K/mcL Neutrophils # 5.4 (1.6-8.9) K/mcL BMP 05/15/17 00:46 Sodium 135 L Potassium 3.7 Chloride 106 Carbon Dioxide 24 BUN 9 Creatinine 0.50 L Glucose 107 H Calcium 7.5 L Cardiac Enzymes 05/14/17 05/15/17 05/15/17 Range/Units 18:39 00:46 06:39 Troponin I < 0.03 < 0.03 0.03 (< 0.04) ng/mL Liver Function 05/15/17 Range/Units 00:46 Total Bilirubin 0.7 (0.3-1.0) mg/dL AST 107 H (13-39) Units/L ALT 21 (7-52) Units/L Alkaline Phosphatase 363 H (34-104) Units/L Albumin 2.4 L (3.5-5.7) g/dL - ABG Interpretation ABG results: PT/INR, D-dimer PT 12.0 Seconds (9.4-12.1) 05/15/17 00:46 - Attending Attestation I have independently seen and examined this patient today 05/15 and discussed plan of care with patient and resident at the bedside 71 F with metastatic CA< palliative per last oncology eval on 04/26/17, chronic anemia, admitted following symptomatic anemia Hx of GI Bleed but currently guiac negative with no melena, hematemesis or BRB per rectum Last palliative chemo 01/2017, patient is said to not be interested in any more treatment and has progressively become deconditioned and cannot care for herself at home Clinically pale on exam, not in distress, moves all extremities, AAOX3, no focal deficits, abdomen is benign, chest is clear, no pedal edema Labs and Imaging reviewed Agree with blood transfusion, d/c IVF, add one more unit of blood. PTOT eval. Palliative care eval Replace phosphate Rest as in resident physician's documentation
[2017-05-15] MEDS: Fluticasone Propionate Nasal 50 MCG/SPRAY BOTTLE NS SCH (11:01)
[2017-05-15] MEDS ORDERED: 0.9 % Sodium Chloride 250 ML ONE (11:31)
[2017-05-16] MEDS: *HR* Heparin 5,000 UNIT/ML VIAL SQ SCH ×2 (05:40→16:56)
[2017-05-16] MEDS: ALPRAZolam 1 MG TABLET PO SCH ×3 (07:49→22:59)
[2017-05-16] MEDS: Gabapentin 300 MG CAPSULE PO SCH ×3 (07:49→22:59)
[2017-05-16] MEDS: Isosorbide MONOnitrate (24 HR) 30 MG TAB.ER.24H PO SCH (07:49)
[2017-05-16] MEDS: amLODIPine 5 MG TABLET PO SCH (07:49)
[2017-05-16] MEDS: Loratadine 10 MG TABLET PO SCH (07:49)
[2017-05-16] MEDS: Lisinopril 20 MG TABLET PO SCH (07:49)
[2017-05-16] MEDS: Famotidine 20 MG TABLET PO SCH ×2 (07:49→22:59)
[2017-05-16] MEDS: Nicotine 21 MG PATCH.TD24 TD SCH (07:50)
[2017-05-16] MEDS: Iron Polysaccharide Complex 150 MG CAPSULE PO SCH ×2 (07:50→22:59)
[2017-05-16] MEDS: *HR* OxyCODONE Immed Rel 5 MG TABLET PO PRN ×2 (07:50→14:17)
[2017-05-16] MEDS: Aspirin Enteric Coated 81 MG Tablet PO SCH (07:50)
[2017-05-16] MEDS: Fluticasone Propionate Nasal 50 MCG/SPRAY BOTTLE NS SCH (07:51)
--- NOTE | 2017-05-16 09:27 | Internal Med Progress Note ---
<Von Leyva - Last Filed: 05/16/17 12:00> Date of Encounter: 05/16/17 Time of Encounter: 09:25 - Assessment and plan (1) Anemia Current Visit: Yes Status: Acute Assessment and plan: There is no evidence of active bleeding. Patient did have a Hemoccult done in the emergency department that was negative. 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 She has had increased weakness. Patient was seen here in the inpatient by oncology she did undergo chemotherapy in January 2017. The anemia is most likely secondary to the chemotherapy. We will check H&H daily. plan is to transfuse if hemoglobin is less than 7. Patient was also low on phosphorus we did give her phosphorus here the repeat did show that she was no longer a critically low. We will continue to monitor. Today her hemoglobin was 9.5 so the 2 units of blood did help her and she now is less anemic. Qualifiers: Anemia type: unspecified type Qualified Code(s): D64.9 - Anemia, unspecified (2) Community acquired bacterial pneumonia Current Visit: Yes Status: Acute Assessment and plan: Patient did have diffuse wheezing does have history of COPD on exam. Due to the wheezing we did get chest x-ray which did show pleural effusions most likely representing a pneumonia. Patient would be considered a community- acquired pneumonia. We will start her on IV Levaquin. She does not have any leukocytosis but she is chronically anemic due to her cancer. We will also give patient DuoNeb's as needed and we will give a stat DuoNeb at this time. This is day 1 of IV Levaquin. Chest X-Ray 05/16/17 10:31 IMPRESSION: Fullness left hilum scratch the increased density in size the left hilum compatible with known neoplasm, probably increased since December 2016 radiograph. Multifocal bilateral airspace disease and left pleural effusion likely representing pneumonia. Asymmetric edema is also a consideration. D/ / Haydee Martinez Cha, MD / Haydee Martinez Cha, MD Interpreting Provider: Haydee Martinez Cha, MD (3) Generalized weakness Current Visit: Yes Status: Acute Assessment and plan: This most likely is secondary to worsening of her anemia social media community manager has been consulted for possible placement but are out of the office until early next week due to the holiday. Patient does have a hard time ambulating we will also get PT and OT consults. Those are pending. (4) Metastatic lung cancer (metastasis from lung to other site) Current Visit: No Status: Acute Assessment and plan: Stable states her last chemotherapy was not long ago done in [place]. Patient was seen by oncology here who did give her chemotherapy but patient has since decided to stop her chemotherapy. Due to patient's generalized weakness and no longer getting treatment we will consult palliative to have them talk with her and discuss a plan going forward. We will await palliative recommendations. Qualifiers: Laterality: unspecified laterality Qualified Code(s): C34.90 - Malignant neoplasm of unspecified part of unspecified bronchus or lung (5) Hypertension Current Visit: No Status: Chronic Assessment and plan: Currently stable. We will continue home meds. Qualifiers: Hypertension type: unspecified Qualified Code(s): I10 - Essential (primary ) hypertension (6) Dyslipidemia Current Visit: No Status: Chronic Assessment and plan: Stable Continue home statin. (7) COPD (chronic obstructive pulmonary disease) Current Visit: No Status: Chronic Assessment and plan: Stable Continue home maintenance therapy and start DuoNeb's when needed. Oxygen 2 L as needed. Patient does have wheezing most likely due to fluid overload and the fluids that she got. We will give patient doing nebs and also get 2 view chest x-ray to be sure there is no underlying pneumonia or pleural effusions Qualifiers: COPD type: chronic bronchitis Chronic bronchitis type: unspecified Qualified Code(s): J42 - Unspecified chronic bronchitis (8) Nicotine dependence with nicotine-induced disorder Current Visit: No Status: Chronic Assessment and plan: We will provide nicotine patch. Did talk to patient about smoking cessation she will not do this further. Patient does have 20 year pack history Qualifiers: Nicotine product type: cigarettes Qualified Code(s): F17.219 - Nicotine dependence, cigarettes, with unspecified nicotine-induced disorders (9) DVT prophylaxis Current Visit: No Status: Acute Assessment and plan: 5000 units heparin subcutaneous twice a day - Subjective Interval history: Patient states she is doing well today. Says she is still having pain in her entire body which is normal for her. She says when I evaluated her that she is noted on her pain medication so she is hurting a little more now than her normal. She is due to have pain medications and a half hour. This is normal for her. She said she still does feel very weak and really she cannot do her normal daily activities. Patient otherwise having no pain complaints included chest pain, shortness of breath, fevers, nausea, vomiting. There is overnight events. - Constitutional Vitals: Temp Pulse Resp BP Pulse Ox 97.9 F 99 15 165/80 92 05/16/17 08:20 05/16/17 08:20 05/16/17 08:20 05/16/17 08:20 05/16/17 08:20 General appearance: Present: A&O X 2, pleasant, no acute distress - Head Head exam: Present: atraumatic, normocephalic - Eye Eye exam: Present: PERRL, conjuntiva pink, sclera anicteric Pupils: Present: PERRL - Neck Neck exam general surgery: Present: supple, trachea midline. Absent: lymphadenopathy - Respiratory Respiratory exam: Present: CTAB. Absent: accessory muscle use, rales, rhonchi, wheezes - Cardiovascular Cardiovascular exam: Present: RRR, +S1, +S2. Absent: diastolic murmur, gallop, rubs, systolic murmur - GI/Abdominal GI/Abdominal exam: Present: normal bowel sounds, soft, no peritoneal signs. Absent: distended, tenderness - Extremities Exam Extremities exam: Present: warm, radial pulses palpable and symmetrical. Absent : calf tenderness, cyanotic, pedal edema - Neurological Exam Neurological exam: Present: CN II-XII intact, oriented X3, no focal deficits. Absent: pronater drift, facial droop, speech deficit - Skin Skin exam: Present: dry, intact Internal Medicine: Result - Labs CBC & Chem 7: 05/16/17 11:45 05/15/17 00:46 - ABG Interpretation ABG results: PT/INR, D-dimer PT 12.0 Seconds (9.4-12.1) 05/15/17 00:46 Consult Discharge Plan - Plan Referrals: Jaden Srinivasan MD [Primary Care Provider] - (web request sent on 05/15/17) <Cristopher Singh - Last Filed: 05/16/17 13:04> Date of Encounter: 05/16/17 - Constitutional Vitals: Temp Pulse Resp BP Pulse Ox 98.1 F 91 15 130/76 92 05/16/17 12:17 05/16/17 12:17 05/16/17 12:29 05/16/17 12:17 05/16/17 12:29 Internal Medicine: Result - Labs CBC & Chem 7: 05/16/17 11:45 05/15/17 00:46 Labs: Short CBC 05/16/17 Range/Units 11:45 WBC 11.5 H (4.3-11.1) K/mcL Hgb 9.5 L D (11.5-15.4) g/dL Hct 32.0 L (35.3-44.9) % Plt Count 159 (140-400) K/mcL - ABG Interpretation ABG results: PT/INR, D-dimer PT 12.0 Seconds (9.4-12.1) 05/15/17 00:46 - Impressions Impressions Chest X-Ray 05/16/17 10:31 IMPRESSION: Fullness left hilum scratch the increased density in size the left hilum compatible with known neoplasm, probably increased since December 2016 radiograph. Multifocal bilateral airspace disease and left pleural effusion likely representing pneumonia. Asymmetric edema is also a consideration. D/ / Haydee Martinez Cha, MD / Haydee Martinez Cha, MD Interpreting Provider: Haydee Martinez Cha, MD - Attending Attestation I have independently seen and examined this patient today 05/16 and discussed plan of care with patient and resident at the bedside 71 F with metastatic CA< palliative per last oncology eval on 04/26/17, chronic anemia, admitted following symptomatic anemia Hx of GI Bleed but currently guiac negative with no melena, hematemesis or BRB per rectum Last palliative chemo 01/2017, patient is said to not be interested in any more treatment and has progressively become deconditioned and cannot care for herself at home Patient complained of fatigue and looked very dyspneic on exam, chest auscultation revealed diffuse wheezing, no rhonchi STAT CXR showed persistent lung mass and possible bilateral pneumonia no CXR on admission to compare We will treat with Levaquin as community acquired pneumonia We will add duonebs q6H GIOVANNI Continue to monitor Hb has improved with blood transfusion Patient is full code Replace phosphate Rest as in resident physician's documentation
[2017-05-16] MEDS ORDERED: Ipratropium/Albuterol Neb 3 ML IH PRN (10:32)
[2017-05-16 11:50] LABS: Mean Corpuscular HGB Conc 29.7 g/dL (31.6-35.5); Mean Corpuscular Volume 80.8 fL (83.0-100.0); Mean Platelet Volume 9.5 fL (9.4-12.4); Platelet Count 159 K/mcL (140-400); Red Blood Count 3.96 M/mcL (3.82-4.97); Red Cell Distribution Width 19.9 % (11.5-14.5)
[2017-05-16 11:53] LABS: Hemoglobin 9.5 g/dL (11.5-15.4)
[2017-05-16] MEDS: Levofloxacin 750 MG/150 ML 750 MG/150 ML BAG IVPB SCH (12:36)
[2017-05-16] MEDS: Ipratropium/Albuterol Neb 3 ML IH SCH ×2 (16:10→20:24)
[2017-05-17] MEDS: Ipratropium/Albuterol Neb 3 ML IH SCH ×7 (00:39→23:24)
[2017-05-17 04:42] LABS: Hematocrit 30.6 % (35.3-44.9); Hemoglobin 9.1 g/dL (11.5-15.4); Mean Corpuscular HGB Conc 29.7 g/dL (31.6-35.5); Mean Corpuscular Hemoglobin 24.2 pg (28.0-33.3); Mean Corpuscular Volume 81.4 fL (83.0-100.0); Platelet Count 148 K/mcL (140-400); Red Blood Count 3.76 M/mcL (3.82-4.97); Red Cell Distribution Width 20.1 % (11.5-14.5)
[2017-05-17] MEDS: *HR* Heparin 5,000 UNIT/ML VIAL SQ SCH ×2 (06:21→17:42)
--- NOTE | 2017-05-17 07:43 | Internal Med Progress Note ---
<Von Leyva - Last Filed: 05/17/17 11:55> Date of Encounter: 05/17/17 Time of Encounter: 08:41 - Assessment and plan (1) Anemia Current Visit: Yes Status: Acute Assessment and plan: There is no evidence of active bleeding. Patient did have a Hemoccult done in the emergency department that was negative. 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 She has had increased weakness. Patient was seen here in the inpatient by oncology she did undergo chemotherapy in January 2017. The anemia is most likely secondary to the chemotherapy. We will check H&H daily. plan is to transfuse if hemoglobin is less than 7. Patient was also low on phosphorus we did give her phosphorus here the repeat did show that she was no longer a critically low. We will continue to monitor. Today her hemoglobin was 9.1 so the 2 units of blood did help her and she now is less anemic. Qualifiers: Anemia type: unspecified type Qualified Code(s): D64.9 - Anemia, unspecified (2) Community acquired bacterial pneumonia Current Visit: Yes Status: Acute Assessment and plan: Patient did have diffuse wheezing does have history of COPD on exam. Due to the wheezing we did get chest x-ray which did show pleural effusions most likely representing a pneumonia. Patient would be considered a community- acquired pneumonia. We will start her on IV Levaquin. She does not have any leukocytosis but she is chronically anemic due to her cancer. We will also give patient DuoNeb's as needed and we will give a stat DuoNeb at this time. This is day 2 of IV Levaquin. Chest X-Ray 05/16/17 10:31 IMPRESSION: Fullness left hilum scratch the increased density in size the left hilum compatible with known neoplasm, probably increased since December 2016 radiograph. Multifocal bilateral airspace disease and left pleural effusion likely representing pneumonia. Asymmetric edema is also a consideration. D/ / Haydee Martinez Cha, MD / Haydee Martinez Cha, MD Interpreting Provider: Haydee Martinez Cha, MD (3) Generalized weakness Current Visit: Yes Status: Acute Assessment and plan: This most likely is secondary to worsening of her anemia social insurance specialist has been consulted for possible placement but are out of the office until early next week due to the holiday. Patient does have a hard time ambulating we will also get PT and OT consults. OT saw the patient yesterday and stated the patient does need to go to an ECF she is unable to take care of herself on her own. We will talk to the palliative about this will only be on Wednesday. PT is yet to see the patient. We will await further recommendations (4) Metastatic lung cancer (metastasis from lung to other site) Current Visit: No Status: Acute Assessment and plan: Stable states her last chemotherapy was not long ago done in [place]. Patient was seen by oncology here who did give her chemotherapy but patient has since decided to stop her chemotherapy. Due to patient's generalized weakness and no longer getting treatment we will consult palliative to have them talk with her and discuss a plan going forward. The son is now in town and states he did not know any of this was going on including her stop the chemotherapy and her being on her own. He says he will come on Wednesday to speak when palliative comes in. We will await palliative recommendations. Qualifiers: Laterality: unspecified laterality Qualified Code(s): C34.90 - Malignant neoplasm of unspecified part of unspecified bronchus or lung (5) Hypertension Current Visit: No Status: Chronic Assessment and plan: Currently stable. We will continue home meds. Qualifiers: Hypertension type: unspecified Qualified Code(s): I10 - Essential (primary ) hypertension (6) Dyslipidemia Current Visit: No Status: Chronic Assessment and plan: Stable Continue home statin. (7) COPD (chronic obstructive pulmonary disease) Current Visit: No Status: Chronic Assessment and plan: Stable Continue home maintenance therapy and start DuoNeb's when needed. Oxygen 2 L as needed. Patient does have wheezing most likely due to fluid overload and the fluids that she got. We will give patient doing nebs and also get 2 view chest x-ray to be sure there is no underlying pneumonia or pleural effusions Qualifiers: COPD type: chronic bronchitis Chronic bronchitis type: unspecified Qualified Code(s): J42 - Unspecified chronic bronchitis (8) Nicotine dependence with nicotine-induced disorder Current Visit: No Status: Chronic Assessment and plan: We will provide nicotine patch. Did talk to patient about smoking cessation she will not do this further. Patient does have 20 year pack history Qualifiers: Nicotine product type: cigarettes Qualified Code(s): F17.219 - Nicotine dependence, cigarettes, with unspecified nicotine-induced disorders (9) Hypophosphatemia Current Visit: Yes Status: Acute Assessment and plan: Most likely secondary to Cancer with mets. Was very low on admission. and gave 2 packets of phosphate and pt increased to 1.7 She is still low so we will give 1 more packet so she doesn't have worsening diarrhea. (10) DVT prophylaxis Current Visit: No Status: Acute Assessment and plan: 5000 units heparin subcutaneous twice a day - Subjective Interval history: Patient states she is doing well today. Says she is still having pain in her entire body which is normal for her. She says when I evaluated her that she is noted on her pain medication so she is hurting a little more now than her normal. She is due to have pain medications and a half hour. This is normal for her. She said she still does feel very weak and really she cannot do her normal daily activities. Patient otherwise having no pain complaints included chest pain, shortness of breath, fevers, nausea, vomiting. There is overnight events. Patient's son is now in town and will come and see her on Wednesday with the talk with all the consultations. - Constitutional Vitals: Temp Pulse Resp BP Pulse Ox 99.1 F 95 17 128/72 93 05/17/17 06:55 05/17/17 06:55 05/17/17 06:55 05/17/17 06:55 05/17/17 06:55 General appearance: Present: A&O X 2, pleasant, no acute distress - Head Head exam: Present: atraumatic, normocephalic - Eye Eye exam: Present: PERRL, conjuntiva pink, sclera anicteric Pupils: Present: PERRL - Neck Neck exam general surgery: Present: supple, trachea midline. Absent: lymphadenopathy - Respiratory Respiratory exam: Present: decreased breath sounds, rhonchi (Mild rhonchi bilaterally in the bases.). Absent: accessory muscle use, rales, respiratory distress, wheezes - Cardiovascular Cardiovascular exam: Present: RRR, +S1, +S2. Absent: diastolic murmur, gallop, rubs, systolic murmur - GI/Abdominal GI/Abdominal exam: Present: normal bowel sounds, soft, no peritoneal signs. Absent: distended, tenderness - Extremities Exam Extremities exam: Present: warm, radial pulses palpable and symmetrical. Absent : calf tenderness, cyanotic, pedal edema - Neurological Exam Neurological exam: Present: CN II-XII intact, oriented X3, no focal deficits. Absent: pronater drift, facial droop, speech deficit - Skin Skin exam: Present: dry, intact Internal Medicine: Result - Labs CBC & Chem 7: 05/17/17 04:21 05/15/17 00:46 Labs: Short CBC 05/16/17 05/17/17 Range/Units 11:45 04:21 WBC 11.5 H 10.1 (4.3-11.1) K/mcL Hgb 9.5 L D 9.1 L (11.5-15.4) g/dL Hct 32.0 L 30.6 L (35.3-44.9) % Plt Count 159 148 (140-400) K/mcL - ABG Interpretation ABG results: PT/INR, D-dimer PT 12.0 Seconds (9.4-12.1) 05/15/17 00:46 - Impressions Impressions Chest X-Ray 05/16/17 10:31 IMPRESSION: Fullness left hilum scratch the increased density in size the left hilum compatible with known neoplasm, probably increased since December 2016 radiograph. Multifocal bilateral airspace disease and left pleural effusion likely representing pneumonia. Asymmetric edema is also a consideration. D/ / Haydee Martinez Cha, MD / Haydee Martinez Cha, MD Interpreting Provider: Haydee Martinez Cha, MD Consult Discharge Plan - Plan Referrals: Jaden Srinivasan MD [Primary Care Provider] - (web request sent on 05/15/17) <SamanthaCristopher T - Last Filed: 05/17/17 14:50> Date of Encounter: 05/17/17 - Constitutional Vitals: Temp Pulse Resp BP Pulse Ox 98.6 F 104 18 140/79 97 05/17/17 10:45 05/17/17 10:45 05/17/17 11:08 05/17/17 10:45 05/17/17 11:08 Internal Medicine: Result - Labs CBC & Chem 7: 05/17/17 04:21 05/15/17 00:46 Labs: Short CBC 05/17/17 Range/Units 04:21 WBC 10.1 (4.3-11.1) K/mcL Hgb 9.1 L (11.5-15.4) g/dL Hct 30.6 L (35.3-44.9) % Plt Count 148 (140-400) K/mcL - ABG Interpretation ABG results: PT/INR, D-dimer PT 12.0 Seconds (9.4-12.1) 05/15/17 00:46 - Attending Attestation I have independently seen and examined this patient today 05/17/17 and discussed plan of care with patient and resident at the bedside 71 F with metastatic CA, palliative per last oncology eval on 04/26/17, chronic anemia, admitted following symptomatic anemia Hx of GI Bleed but currently guiac negative with no melena, hematemesis or BRB per rectum Last palliative chemo 01/2017, patient is said to not be interested in any more treatment and has progressively become deconditioned and cannot care for herself at home Diagnosis of community acquired pneumonia 05/16/17 NO new complains Dyspnea has improved, she looks clinically better and denies new complains She is requesting her pain meds She is refusing SNF placement She is otherwise stable Await palliative and SW eval tomorrow Continue antibiotics Rest as in resident physician's documentation
[2017-05-17] MEDS: Levofloxacin 750 MG/150 ML 750 MG/150 ML BAG IVPB SCH (11:20)
[2017-05-17] MEDS: Nicotine 21 MG PATCH.TD24 TD SCH (11:31)
[2017-05-17] MEDS: Iron Polysaccharide Complex 150 MG CAPSULE PO SCH ×2 (11:31→19:55)
[2017-05-17] MEDS: Gabapentin 300 MG CAPSULE PO SCH ×3 (11:31→19:54)
[2017-05-17] MEDS: Isosorbide MONOnitrate (24 HR) 30 MG TAB.ER.24H PO SCH (11:32)
[2017-05-17] MEDS: amLODIPine 5 MG TABLET PO SCH (11:32)
[2017-05-17] MEDS: Aspirin Enteric Coated 81 MG Tablet PO SCH (11:32)
[2017-05-17] MEDS: Loratadine 10 MG TABLET PO SCH (11:32)
[2017-05-17] MEDS: Lisinopril 20 MG TABLET PO SCH (11:32)
[2017-05-17] MEDS: ALPRAZolam 1 MG TABLET PO SCH ×3 (11:32→19:54)
[2017-05-17] MEDS: Famotidine 20 MG TABLET PO SCH ×2 (11:32→19:55)
[2017-05-17] MEDS: Fluticasone Propionate Nasal 50 MCG/SPRAY BOTTLE NS SCH (11:33)
[2017-05-17] MEDS: *HR* OxyCODONE Immed Rel 5 MG TABLET PO PRN (17:41)
[2017-05-18] MEDS: Ipratropium/Albuterol Neb 3 ML IH SCH ×6 (03:42→23:40)
[2017-05-18 03:45] LABS: Hemoglobin 8.7 g/dL (11.5-15.4); Mean Corpuscular Volume 82.6 fL (83.0-100.0); Mean Platelet Volume 10.3 fL (9.4-12.4); Platelet Count 145 K/mcL (140-400); Red Blood Count 3.63 M/mcL (3.82-4.97); Red Cell Distribution Width 21.3 % (11.5-14.5)
[2017-05-18] MEDS ORDERED: 0.9 % Sodium Chloride 1,000 ML IV SCH (04:30)
[2017-05-18] MEDS: *HR* Heparin 5,000 UNIT/ML VIAL SQ SCH ×2 (04:47→16:47)
[2017-05-18] MEDS ORDERED: *HR* OxyCODONE Immed Rel 5 MG TABLET PO PRN (08:28)
[2017-05-18] MEDS: amLODIPine 5 MG TABLET PO SCH (09:12)
[2017-05-18] MEDS: Loratadine 10 MG TABLET PO SCH (09:12)
[2017-05-18] MEDS: Aspirin Enteric Coated 81 MG Tablet PO SCH (09:12)
[2017-05-18] MEDS: Gabapentin 300 MG CAPSULE PO SCH ×3 (09:12→21:42)
[2017-05-18] MEDS: ALPRAZolam 1 MG TABLET PO SCH ×4 (09:12→22:05)
[2017-05-18] MEDS: Iron Polysaccharide Complex 150 MG CAPSULE PO SCH ×2 (09:12→21:42)
[2017-05-18] MEDS: Levofloxacin 750 MG/150 ML 750 MG/150 ML BAG IVPB SCH (09:13)
[2017-05-18] MEDS: Nicotine 21 MG PATCH.TD24 TD SCH (09:14)
[2017-05-18] MEDS: Fluticasone Propionate Nasal 50 MCG/SPRAY BOTTLE NS SCH (09:20)
[2017-05-18] MEDS: Isosorbide MONOnitrate (24 HR) 30 MG TAB.ER.24H PO SCH (09:22)
[2017-05-18] MEDS: Lisinopril 20 MG TABLET PO SCH (09:23)
[2017-05-18] MEDS: Famotidine 20 MG TABLET PO SCH ×2 (09:24→21:42)
--- NOTE | 2017-05-18 09:41 | Discharge Summary ---
<Von Leyva - Last Filed: 05/18/17 12:48> Date of Encounter: 05/18/17 Time of Encounter: 09:39 - Discharge Diagnosis (1) Anemia Priority: Primary Status: Acute Qualifiers: Anemia type: unspecified type Qualified Code(s): D64.9 - Anemia, unspecified (2) Community acquired bacterial pneumonia Priority: Secondary Status: Acute (3) Generalized weakness Priority: Secondary Status: Acute (4) Metastatic lung cancer (metastasis from lung to other site) Priority: Secondary Status: Acute Qualifiers: Laterality: unspecified laterality Qualified Code(s): C34.90 - Malignant neoplasm of unspecified part of unspecified bronchus or lung (5) Hypertension Priority: Secondary Status: Chronic Qualifiers: Hypertension type: unspecified Qualified Code(s): I10 - Essential (primary ) hypertension (6) Dyslipidemia Priority: Secondary Status: Chronic (7) COPD (chronic obstructive pulmonary disease) Priority: Secondary Status: Chronic Qualifiers: COPD type: chronic bronchitis Chronic bronchitis type: unspecified Qualified Code(s): J42 - Unspecified chronic bronchitis (8) Nicotine dependence with nicotine-induced disorder Priority: Secondary Status: Chronic Qualifiers: Nicotine product type: cigarettes Qualified Code(s): F17.219 - Nicotine dependence, cigarettes, with unspecified nicotine-induced disorders (9) Hypophosphatemia Priority: Secondary Status: Acute (10) DVT prophylaxis Priority: Secondary Status: Acute - Discharge Medications Prescriptions: levoFLOXacin [Levaquin] 750 mg PO DAILY #5 tablet Home Medications: ALPRAZolam [Xanax 1 MG Tablet] 1 mg PO TID 02/28/16 [History] Albuterol Sulfate [Proair Hfa] 1 puff IH Q4H PRN 02/28/16 [History] Estradiol 0.5 mg PO DAILY 02/28/16 [History] Fexofenadine HCl [Allergy Relief] 180 mg PO DAILY 02/28/16 [History] Fluticasone Propionate Nasal [Flonase] 2 spr NS DAILY 02/28/16 [History] Gabapentin 600 mg PO TID 02/28/16 [History] Iron Polysaccharide Complex [Pro Fe] 180 mg PO BID 02/28/16 [History] Lisinopril [Zestril] 40 mg PO DAILY 02/28/16 [History] Nitroglycerin 0.4 mg SL Q5M PRN 02/28/16 [History] Oxycodone HCl 10 mg PO Q4H PRN 02/28/16 [History] Propranolol HCl 40 mg PO DAILY 02/28/16 [History] Ranitidine HCl [Zantac] 150 mg PO BID 02/28/16 [History] Zolpidem [Ambien] 10 mg PO HS 02/28/16 [History] Isosorbide MONOnitrate (24 HR) [Imdur] 30 mg PO DAILY 30 Days tab.er.24h [Rx] Aspirin Enteric Coated [Aspirin EC] 81 mg PO DAILY 08/22/16 [History] Cyclobenzaprine HCl 5 mg PO TID PRN 08/22/16 [History] Dicyclomine [Bentyl] 10 mg PO QID #40 capsule 08/23/16 [Rx] amLODIPine [Norvasc] 2.5 mg PO DAILY tablet 08/23/16 [Rx] Hydromorphone HCl [Dilaudid] 2 mg PO Q4H PRN #90 tablet 04/26/17 [Rx] Dronabinol [Marinol] 2.5 mg PO BID 05/14/17 [History] levoFLOXacin [Levaquin] 750 mg PO DAILY #5 tablet 05/18/17 [Rx] Allergies/Adverse Reactions: 3 Allergy/AdvReac Type Severity Reaction Status Date / Time Iodinated Contrast- Oral and Allergy Hives Verified 12/07/16 20:54 IV Dye [Iodinated Contrast Media - IV Dye] morphine Allergy Anaphylaxis Verified 12/07/16 20:54 nitrofurantoin Allergy Rash Verified 04/26/17 15:14 [From Macrobid] Penicillins Allergy Anaphylaxis Verified 12/07/16 20:54 azithromycin AdvReac Rash Verified 04/26/17 15:14 Date of admission: 05/14/17 18:18 Primary care physician: Jaden Srinivasan MD Consults: 05/17/17 22:20 Consult to Speech Therapy [CONS] Routine Comment: Evaluate, develop and implement POC Reason for Consult: difficulty taking PO meds x1 episode. Call Completed: No 05/15/17 10:55 Consult to Occupational Therapy [CONS] Routine Comment: Evaluate, develop and implement POC Reason for Consult: weakness, transfusion, cancer Consult to Physical Therapy [CONS] Routine Comment: Evaluate, develop and implement POC Reason for Consult: Weakness, transfusion, cancer 05/15/17 10:58 Consult to Palliative Care [CONS] Routine Comment: Consulting Provider: Palliative Care Candy Reason for Consult: Metastatic cancer no more chemo. Possible hospice Time Notified: 10:59 Call Completed: Yes Discharging clinician: Von Leyva Anticipated date of discharge: 05/19/17 - Patient Status Disposition: Hospice - Home Condition: Good Functional capacity at discharge: wheelchair bound Overall status at discharge: patient is not back to baseline - Discharge Instructions Follow Up With: Jaden Srinivasan MD [Primary Care Provider] - (web request sent on 05/15/17) - Diet and Activity Activity: ambulate only with your walker, wear oxygen at all times Diet: advance to your usual diet Interval History: Patient is doing well today she said she still having her normal chronic pain she has not gotten her pain medications this morning. She otherwise is having no difficulty in breathing. She had one episode where she had a hard time swallowing last night sunset though she was able to get the food down. Otherwise there were no overnight events she is complaining of no chest pain, shortness of breath, abdominal pain, nausea, vomiting, fevers, and urinary complaints. Patient otherwise has no complaints there were no overnight events Hospital course: Ms. Brice is a 71 year old female presented to the emergency department with generalized weakness. She does have history of metastatic lung cancer. Her last chemotherapy was done [place] January 2017. She has since then decided to a trial chemotherapy. She does live home alone and does not want to go to a senior living facility. She does take care of herself. Patient was shown to be anemic she had a hemoglobin of 6.5 gave her 2 units of packed red blood cells since then she has responded. Patient was also noticed during her stay to be short of breath and there were mild rales on exam suicide. Chest x- ray did show a mild right-sided pneumonia were treating this is community- acquired pneumonia did give IV Levaquin. She had 2 days well here in the hospital. We will send her home on 5 more days of by mouth Levaquin. Patient took it this plan. We did get palliative involved so we could set up home health for the patient. As she does not want to go to a senior living facility. The patient will be set up with home hospice including oxygen. Hospice talked about utilizing her long-acting pain medication and will begin fentanyl patches 12 g today though also transition oxycodone to liquid due to patient now needing changes to her diet due to a difficult time swallowing. She is now to be mechanically attenuated diet. Patient's CODE STATUS also was changed to DNR CC she will also get a bed/mattress, wheelchair. Patient will be discharged tomorrow as it will take all day to get all of her home health and hospice to set up at the house. Patient otherwise is medically cleared for discharge from our standpoint. Patient will be discharged tomorrow she is in stable condition. Time spent discussing smoking cessation with patient: 3 to 10 minutes - Time Spent with Patient Total time spent providing and/or coordinating discharge services: Greater than 30 minutes - Constitutional Vitals: Temp Pulse Resp BP Pulse Ox 98.2 F 84 16 96/58 91 05/18/17 06:40 05/18/17 06:40 05/18/17 07:29 05/18/17 06:40 05/18/17 07:29 General appearance: Present: A&O X 2, pleasant, no acute distress - Head Head exam: Present: atraumatic, normocephalic - Eye Eye exam: Present: PERRL, conjuntiva pink, sclera anicteric Pupils: Present: PERRL - Neck Neck exam general surgery: Present: supple, trachea midline. Absent: lymphadenopathy - Respiratory Respiratory exam: Present: CTAB. Absent: accessory muscle use, rales, rhonchi, wheezes - Cardiovascular Cardiovascular exam: Present: RRR, +S1, +S2. Absent: diastolic murmur, gallop, rubs, systolic murmur - GI/Abdominal GI/Abdominal exam: Present: normal bowel sounds, soft, no peritoneal signs. Absent: distended, tenderness - Extremities Exam Extremities exam: Present: warm, radial pulses palpable and symmetrical. Absent : calf tenderness, cyanotic, pedal edema - Neurological Exam Neurological exam: Present: CN II-XII intact, oriented X3, no focal deficits. Absent: pronater drift, facial droop, speech deficit - Skin Skin exam: Present: dry, intact <Cristopher Singh T - Last Filed: 05/18/17 17:02> Date of Encounter: 05/18/17 Date of admission: 05/14/17 18:18 Primary care physician: Jaden Srinivasan MD Consults: 05/17/17 22:20 Consult to Speech Therapy [CONS] Routine Comment: Evaluate, develop and implement POC Reason for Consult: difficulty taking PO meds x1 episode. Call Completed: No 05/15/17 10:55 Consult to Occupational Therapy [CONS] Routine Comment: Evaluate, develop and implement POC Reason for Consult: weakness, transfusion, cancer Consult to Physical Therapy [CONS] Routine Comment: Evaluate, develop and implement POC Reason for Consult: Weakness, transfusion, cancer 05/15/17 10:58 Consult to Palliative Care [CONS] Routine Comment: Consulting Provider: Palliative Care Candy Reason for Consult: Metastatic cancer no more chemo. Possible hospice Time Notified: 10:59 Call Completed: Yes Hospital course: Ms. Brice is a 71 year old female - Time Spent with Patient Total time spent providing and/or coordinating discharge services: - Constitutional Vitals: Temp Pulse Resp BP Pulse Ox 98 F 91 16 93/55 93 05/18/17 14:33 05/18/17 14:33 05/18/17 15:29 05/18/17 14:33 05/18/17 15:29 - Attending Attestation I have independently seen and examined this patient today 05/18/17 and discussed plan of care with patient and resident at the bedside 71 F with metastatic CA, palliative per last oncology eval on 04/26/17, chronic anemia, admitted following symptomatic anemia Hx of GI Bleed but currently guiac negative with no melena, hematemesis or BRB per rectum Last palliative chemo 01/2017, patient is said to not be interested in any more treatment and has progressively become deconditioned and cannot care for herself at home Diagnosis of community acquired pneumonia 05/16/17 NO new complains Dyspnea has improved, she looks clinically better and denies new complains She is requesting her pain meds She is refusing SNF placement Palliative eval noted-for home hospice, palliative SW working on setting it up possibly tomorrow Patient is medically stable Continue current management pain control per palliative Rest as in resident physician's documentation
[2017-05-18] MEDS ORDERED: OxyCODONE CONC 5 MG/0.25 ML ORAL.SYG PO PRN (10:22)
[2017-05-18] MEDS ORDERED: *HR* FentaNYL PATCH 12 MCG PATCH TD SCH (10:30)
[2017-05-18] MEDS ORDERED: Acetaminophen 325 MG TABLET PO PRN (10:35)
--- NOTE | 2017-05-18 10:58 | Electrocardiograph Report ---
[place] [id number] Test Date: 2017-05-14 Pat Name: Jessica Brice Department: 103 Room: 2A Gender: F Tax Accounting Manager: ROMULO : 1945 Requested By: Leo Clifford Order Number: [id number] Reading MD: Daron Peters DO Measurements Intervals Effie Rate: 89 P: 60 IA: 158 QRS: 25 QRSD: 79 T: 31 QT: 368 QTc: 414 Interpretive Statements SINUS RHYTHM Electronically Signed On 05-18-2017 10:55:58 EST by Daron Peters DO
--- NOTE | 2017-05-18 12:22 | Palliative - Consult Note ---
Date of Encounter: 05/18/17 Time of Encounter: 09:30 - Assessment and Plan (1) Cancer related pain Current Visit: Yes Status: Acute Assessment and plan: PO medications are becoming more difficult for her to take. Son states she was taking pain medication every 4 hours at home. We discussed utilizing long acting pain medication to keep her more comfortable. She is not opioid naive. Will begin Fentanyl patch 12mcg today. Will transition Oxycodone to the liquid concentrate. monitor and adjust as needed. (2) Counseling regarding advanced directives and goals of care Current Visit: Yes Status: Acute Assessment and plan: D/W son Balwinder at bedside ( [phone]). Patient not alert enough to participate in conversation. Patient has 2 sons, but the other is incarcerated. Balwinder resides in [place], but plans on staying here local and taking care of his mother. He is asking if Passport hours can be increased for increased assistance. He desires her comfortable and is agreeable to enrolling in hospice services upon discharge. States that he has spoke with his mother, and she did not want life sustaining treatment, resuscitation, and states she is "at peace with passing and tired of being sick". Transitioned to DNRCC and state form completed. She has no medical equipment set up at home. D/W social work - referral made to [facility]. SW also calling case management social worker to get passport hours increased. She will need bed/mattress, oxygen, BSC, Wheelchair, overbed table set up. D/W Dr. Singh - will arrange homecare equipment today and discharge tomorrow with [facility]. (3) Metastatic lung cancer (metastasis from lung to other site) Current Visit: No Status: Acute Qualifiers: Laterality: unspecified laterality Qualified Code(s): C34.90 - Malignant neoplasm of unspecified part of unspecified bronchus or lung (4) Community acquired bacterial pneumonia Current Visit: Yes Status: Acute Palliative-CN HPI - Data of Consult Requesting Physician: Cristopher Singh MD Primary Care Provider: Jaden Srinivasan MD - Consult Narrative History of present illness: Ms. Brice is a 71 year old female with a history of metastatic lung cancer ( liver/bone mets) who was admitted after found to have abnormal labs and increasing weakness. She had previously received treatment for her cancer in [facility]. She was living alone at home with 3 hours passport /day, and reportedly declining. She was admitted and found to be anemic, and a possible pneumonia. Treated with fluids and antibiotics. She is stable, however, eating little, and sleeping most of the time. Son, Balwinder at bedside reports a dramatic decline in her over the past month. He states pain has been worse at home as well, requiring pain medication every 4 hours. Upon my visit, son is at bedside providing information. Patient is resting with eyes closed - requires tactile stimulation to arouse. Shakes head yes/no to few questions, but does not follow commands. CC: Cristopher Singh MD Past Med Surg Social Fam HX - Past Medical History Medical history: arthritis, asthma, cancer, COPD, fibromyalgia, GERD, GI bleed, hyperlipidemia, hypertension, kidney stones, osteoporosis, renal disease, other Psychiatric history: anxiety, depression, panic disorder, other - Past Surgical History Surgical History: appendectomy, cataract, cholecystectomy, hysterectomy, JANINE/BSO , other - Social History Smoking Status: Current every day smoker Packs per day: 1 Smokeless Tobacco Status: No Alcohol use: none Drug use: none - Family History Father Living Status: Hx Family Cardiac Disorders: Yes Mother Living Status: Hx Family Cardiac Disorders: Yes Hx Family Respiratory Disorders: Yes ("black lung") Hx Family Cancer: No Hx Family GI Disorders: No Hx Family Endocrine Disorder: Yes (DM) Hx Family Neuromuscular Disorders: No Hx Family Neurologic Disorders: No Hx Family HEENT Disorders: No Hx Family Autoimmune Disorders: No Medications and Allergies ALPRAZolam [Xanax 1 MG Tablet] 1 mg PO TID 02/28/16 [History] Albuterol Sulfate [Proair Hfa] 1 puff IH Q4H PRN 02/28/16 [History] Estradiol 0.5 mg PO DAILY 02/28/16 [History] Fexofenadine HCl [Allergy Relief] 180 mg PO DAILY 02/28/16 [History] Fluticasone Propionate Nasal [Flonase] 2 spr NS DAILY 02/28/16 [History] Gabapentin 600 mg PO TID 02/28/16 [History] Iron Polysaccharide Complex [Pro Fe] 180 mg PO BID 02/28/16 [History] Lisinopril [Zestril] 40 mg PO DAILY 02/28/16 [History] Nitroglycerin 0.4 mg SL Q5M PRN 02/28/16 [History] Oxycodone HCl 10 mg PO Q4H PRN 02/28/16 [History] Propranolol HCl 40 mg PO DAILY 02/28/16 [History] Ranitidine HCl [Zantac] 150 mg PO BID 02/28/16 [History] Zolpidem [Ambien] 10 mg PO HS 02/28/16 [History] Isosorbide MONOnitrate (24 HR) [Imdur] 30 mg PO DAILY 30 Days tab.er.24h [Rx] Aspirin Enteric Coated [Aspirin EC] 81 mg PO DAILY 08/22/16 [History] Cyclobenzaprine HCl 5 mg PO TID PRN 08/22/16 [History] Dicyclomine [Bentyl] 10 mg PO QID #40 capsule 08/23/16 [Rx] amLODIPine [Norvasc] 2.5 mg PO DAILY tablet 08/23/16 [Rx] Hydromorphone HCl [Dilaudid] 2 mg PO Q4H PRN #90 tablet 04/26/17 [Rx] Dronabinol [Marinol] 2.5 mg PO BID 05/14/17 [History] levoFLOXacin [Levaquin] 750 mg PO DAILY #5 tablet 05/18/17 [Rx] 3 Allergy/AdvReac Type Severity Reaction Status Date / Time Iodinated Contrast- Oral and Allergy Hives Verified 12/07/16 20:54 IV Dye [Iodinated Contrast Media - IV Dye] morphine Allergy Anaphylaxis Verified 12/07/16 20:54 nitrofurantoin Allergy Rash Verified 04/26/17 15:14 [From Macrobid] Penicillins Allergy Anaphylaxis Verified 12/07/16 20:54 azithromycin AdvReac Rash Verified 04/26/17 15:14 ROS unobtainable: due to mental status Palliative Care-Exam - Constitutional Vitals: Temp Pulse Resp BP Pulse Ox 98.8 F 91 16 90/54 92 05/18/17 10:22 05/18/17 10:22 05/18/17 11:20 05/18/17 10:22 05/18/17 11:20 General appearance: Present: no acute distress - Head Head Exam: Present: normal inspection, normocephalic - Eye Eye exam: Present: normal appearance, PERRL - Respiratory Respiratory exam: Present: decreased breath sounds, CTAB Additional comments: Shallow inspiratory effort - Cardiovascular Cardiovascular exam: Present: +S1, +S2 - GI/Abdominal Exam GI/Abdominal exam: Present: normal bowel sounds, soft - Extremities Exam Additional comments: 2+ edema bilateral lower extremities - Neurological Exam Additional comments: Lethargic - opens eyes, answers yes/no questions. Does not follow commands at present - Skin Skin exam: Present: dry, pallor, warm Internal Medicine - CN: Reslt - Labs CBC & Chem 7: 05/18/17 03:10 05/15/17 00:46 Labs: Short CBC 05/18/17 Range/Units 03:10 WBC 10.5 (4.3-11.1) K/mcL Hgb 8.7 L (11.5-15.4) g/dL Hct 30.0 L (35.3-44.9) % Plt Count 145 (140-400) K/mcL - ABG Interpretation ABG results: PT/INR, D-dimer PT 12.0 Seconds (9.4-12.1) 05/15/17 00:46 Consult Discharge Plan - Plan Referrals: Jaden Srinivasan MD [Primary Care Provider] - (web request sent on 05/15/17) Prescriptions: levoFLOXacin [Levaquin] 750 mg PO DAILY #5 tablet Palliative Quality Palliative Quality: Screen for Code Status: Yes, Screen for Goals of Care: Yes, Screen for Pain: Yes, If Pain Regimen Started, Initiate Bowel Regimen: Yes, Screen for Nausea/Vomitting: Yes Code Status: 05/18/17 10:22 DNR [Resuscitation Status: Active] [RES] Routine Comment: Resuscitation Status: DNR-Comfort Care
--- NOTE | 2017-05-18 12:55 | Physician Discharge Referral ---
Home Health/Hosp Referral Info Transfer to: Hospice Attending Provider: Cristopher Singh Provider in Charge Post Discharge: PCP - Diagnosis (1) Anemia Priority: Secondary Status: Acute (2) Community acquired bacterial pneumonia Priority: Secondary Status: Acute (3) Generalized weakness Priority: Secondary Status: Acute (4) Metastatic lung cancer (metastasis from lung to other site) Priority: Primary Status: Acute (5) Hypertension Priority: Secondary Status: Chronic (6) Dyslipidemia Priority: Secondary Status: Chronic (7) COPD (chronic obstructive pulmonary disease) Priority: Secondary Status: Chronic (8) Nicotine dependence with nicotine-induced disorder Priority: Secondary Status: Chronic (9) Hypophosphatemia Priority: Secondary Status: Acute (10) DVT prophylaxis Priority: Secondary Status: Acute - Respiratory Orders Oxygen / L per min (2 L) Smoking Cessation: Smoking cessation has been advised. For more information, call the [employer] Quit Line at 0-952-PGWC-NOW. - Diet/Nutrition Diet/Nutrition Orders: Mechanical Soft - Activity Activity Orders: Chair - Services Needed Following services are medically necessary services: Nursing, Home Health Aide, Physical Therapy, Occupational Therapy - Transfer Medications Prescriptions: levoFLOXacin [Levaquin] 750 mg PO DAILY #5 tablet Home Medications: ALPRAZolam [Xanax 1 MG Tablet] 1 mg PO TID 02/28/16 [History] Albuterol Sulfate [Proair Hfa] 1 puff IH Q4H PRN 02/28/16 [History] Estradiol 0.5 mg PO DAILY 02/28/16 [History] Fexofenadine HCl [Allergy Relief] 180 mg PO DAILY 02/28/16 [History] Fluticasone Propionate Nasal [Flonase] 2 spr NS DAILY 02/28/16 [History] Gabapentin 600 mg PO TID 02/28/16 [History] Iron Polysaccharide Complex [Pro Fe] 180 mg PO BID 02/28/16 [History] Lisinopril [Zestril] 40 mg PO DAILY 02/28/16 [History] Nitroglycerin 0.4 mg SL Q5M PRN 02/28/16 [History] Oxycodone HCl 10 mg PO Q4H PRN 02/28/16 [History] Propranolol HCl 40 mg PO DAILY 02/28/16 [History] Ranitidine HCl [Zantac] 150 mg PO BID 02/28/16 [History] Zolpidem [Ambien] 10 mg PO HS 02/28/16 [History] Isosorbide MONOnitrate (24 HR) [Imdur] 30 mg PO DAILY 30 Days tab.er.24h [Rx] Aspirin Enteric Coated [Aspirin EC] 81 mg PO DAILY 08/22/16 [History] Cyclobenzaprine HCl 5 mg PO TID PRN 08/22/16 [History] Dicyclomine [Bentyl] 10 mg PO QID #40 capsule 08/23/16 [Rx] amLODIPine [Norvasc] 2.5 mg PO DAILY tablet 08/23/16 [Rx] Hydromorphone HCl [Dilaudid] 2 mg PO Q4H PRN #90 tablet 04/26/17 [Rx] Dronabinol [Marinol] 2.5 mg PO BID 05/14/17 [History] levoFLOXacin [Levaquin] 750 mg PO DAILY #5 tablet 05/18/17 [Rx] Allergies/Adverse Reactions: 3 Allergy/AdvReac Type Severity Reaction Status Date / Time Iodinated Contrast- Oral and Allergy Hives Verified 12/07/16 20:54 IV Dye [Iodinated Contrast Media - IV Dye] morphine Allergy Anaphylaxis Verified 12/07/16 20:54 nitrofurantoin Allergy Rash Verified 04/26/17 15:14 [From Macrobid] Penicillins Allergy Anaphylaxis Verified 12/07/16 20:54 azithromycin AdvReac Rash Verified 04/26/17 15:14 Certification: Further, I certify that my clinical findings support that this patient is homebound (i.e. absences from home require considerable and taxing effort and are for medical reasons or rastafarian services or infrequently or short duration when for other reasons) because: Homebound Reason: Patient requires assistance of a person or device to safely leave home, Absences from home are contraindicated except to recieve medical care, Leaving home requires considerable and taxing effort due to condition Attestation: My signature below is to certify that this patient is under my care and that I, or nurse practitioner, or a physician's hr assistant working with me, has a face-to -face encounter with this patient.
[2017-05-19] MEDS: Ipratropium/Albuterol Neb 3 ML IH SCH ×3 (03:49→11:35)
[2017-05-19] MEDS: *HR* Heparin 5,000 UNIT/ML VIAL SQ SCH (05:15)
--- NOTE | 2017-05-19 09:03 | Palliative Progress Note ---
Date of Encounter: 05/19/17 Time of Encounter: 09:00 - Assessment and plan (1) Cancer related pain Current Visit: Yes Status: Acute Assessment and plan: Appears to be tolerating Fentanyl patch well. Will continue - prescription written. She is allergic to Morphine - son reports shortness of breath/hives. Prescription faxed to [facility] for Oxycodone concentrate (2) Counseling regarding advanced directives and goals of care Current Visit: Yes Status: Acute Assessment and plan: Spoke with son Balwinder - he will be at [facility] awaiting medical equipment delivery. He will come to hospital afterward and hospice will meet him here to enroll her. Spoke with Luna at [facility] and verified the above. (3) Metastatic lung cancer (metastasis from lung to other site) Current Visit: No Status: Acute Qualifiers: Laterality: unspecified laterality Qualified Code(s): C34.90 - Malignant neoplasm of unspecified part of unspecified bronchus or lung (4) Community acquired bacterial pneumonia Current Visit: Yes Status: Acute - Time Spent With Patient Total time spent is greater than 50% in coordination of care (as documented) at patient's floor/unit and/or counseling patient: - Subjective Interval history: Patient asleep on my arrival - awakens with stimulation. Would not open eyes for me and refused breakfast. Appears comfortable - Constitutional Vitals: Abnormal lab results RBC 3.63 M/mcL (3.82-4.97) L 05/18/17 03:10 Hgb 8.7 g/dL (11.5-15.4) L 05/18/17 03:10 Hct 30.0 % (35.3-44.9) L 05/18/17 03:10 MCV 82.6 fL (83.0-100.0) L 05/18/17 03:10 MCH 24.0 pg (28.0-33.3) L 05/18/17 03:10 MCHC 29.0 g/dL (31.6-35.5) L 05/18/17 03:10 RDW 21.3 % (11.5-14.5) H 05/18/17 03:10 Immature Gran % 5.7 % (0-4) H 05/15/17 00:46 Nucleated RBCs/100 WBC 1.1 /100 WBC (0) H 05/15/17 00:46 Platelet Estimate Slight Decrease (Normal) L 05/15/17 00:46 Polychromasia 1+ (Not Present) A 05/15/17 00:46 Anisocytosis 1+ (Not Present) A 05/15/17 00:46 APTT 24.2 Seconds (26.0-36.0) L 05/15/17 00:46 Sodium 135 mEq/L (136-145) L 05/15/17 00:46 Creatinine 0.50 mg/dL (0.60-1.20) L 05/15/17 00:46 Glucose 107 mg/dL (70-105) H 05/15/17 00:46 Calculated Osmolality 279 (280-300) L 05/15/17 00:46 Calcium 7.5 mg/dL (8.6-10.3) L 05/15/17 00:46 AST 107 Units/L (13-39) H 05/15/17 00:46 Alkaline Phosphatase 363 Units/L (34-104) H 05/15/17 00:46 Serum Total Protein 5.5 g/dL (6.4-8.9) L 05/15/17 00:46 Albumin 2.4 g/dL (3.5-5.7) L 05/15/17 00:46 Albumin/Globulin Ratio 0.8 (1.1-2.2) L 05/15/17 00:46 Triglycerides 185 mg/dL (< 150) H 05/15/17 00:46 VLDL Cholesterol, Calc 37 mg/dL (< 31) H 05/15/17 00:46 HDL Cholesterol 16 mg/dL (40-59) L 05/15/17 00:46 Cholesterol/HDL Ratio 9.3 (0-4.9) H 05/15/17 00:46 Urine Clarity Cloudy (Clear) A 05/14/17 14:06 General appearance: Present: no acute distress - Respiratory Respiratory exam: Present: decreased breath sounds, CTAB - Cardiovascular Cardiovascular exam: Present: +S1, +S2 - GI/Abdominal GI/Abdominal exam: Present: normal bowel sounds, soft - Extremities Exam Extremities exam: Present: normal capillary refill, normal inspection - Skin Skin exam: Present: dry, pallor, warm Palliative Quality Palliative Quality: Screen for Code Status: Yes, Screen for Goals of Care: Yes, Screen for Pain: Yes, If Pain Regimen Started, Initiate Bowel Regimen: Yes, Screen for Nausea/Vomitting: Yes Code Status: 05/18/17 10:22 DNR [Resuscitation Status: Active] [RES] Routine Comment: Resuscitation Status: DNR-Comfort Care - Labs CBC & Chem 7: 05/18/17 03:10 05/15/17 00:46 - ABG Interpretation ABG results: PT/INR, D-dimer PT 12.0 Seconds (9.4-12.1) 05/15/17 00:46 Consult Discharge Plan - Plan Referrals: Jaden Srinivasan MD [Primary Care Provider] - (web request sent on 05/15/17) Prescriptions: FentaNYL PATCH [Duragesic] 1 each TD Q72H #2 patch.[id number] levoFLOXacin [Levaquin] 750 mg PO DAILY #5 tablet LORazepam Oral Conc [Ativan Oral Conc] 0.5 - 1 mg PO Q4H PRN #15 mls PRN Reason: anxiety, if cant take po xanax OxyCODONE CONC 5 - 10 mg PO Q2H PRN #30 mls PRN Reason: pain/dyspnea
[2017-05-19] MEDS: amLODIPine 5 MG TABLET PO SCH (09:10)
[2017-05-19] MEDS: Lisinopril 20 MG TABLET PO SCH (09:10)
[2017-05-19] MEDS: Famotidine 20 MG TABLET PO SCH (09:13)
[2017-05-19] MEDS: ALPRAZolam 1 MG TABLET PO SCH (09:13)
[2017-05-19] MEDS: Isosorbide MONOnitrate (24 HR) 30 MG TAB.ER.24H PO SCH (09:13)
[2017-05-19] MEDS: Gabapentin 300 MG CAPSULE PO SCH (09:13)
[2017-05-19] MEDS: Loratadine 10 MG TABLET PO SCH (09:13)
[2017-05-19] MEDS: Aspirin Enteric Coated 81 MG Tablet PO SCH (09:13)
[2017-05-19] MEDS: Iron Polysaccharide Complex 150 MG CAPSULE PO SCH (09:14)
[2017-05-19] MEDS: Nicotine 21 MG PATCH.TD24 TD SCH (09:14)
[2017-05-19] MEDS: Fluticasone Propionate Nasal 50 MCG/SPRAY BOTTLE NS SCH (09:18)
[2017-05-19] MEDS: Levofloxacin 750 MG/150 ML 750 MG/150 ML BAG IVPB SCH (09:21)
[2017-05-19 11:00] VITALS: BP 103/66
--- NOTE | 2017-05-19 13:03 | Event Note ---
Date of Encounter: 05/19/17 Time of Encounter: 13:01 Hospice chief medical officer certification of terminal illness: Hospice benefit. Start: 05/19/2017 Hospice benefit. In: +90 days Palliative performance scale: 30 % History: tHe patient has a history of metastatic lung cancer with metastases to the bone and liver. Longer able to take any further chemotherapy. She does not wish to have any further aggressive therapy wishes for comfort only vision of the fact there is no more therapy available to her I believe that These findings support a life expectancy of 6 months or less. I attest that I have compose the above narrative based on my review of the patient's medical records, and or on my examination of the patient. Feliciano Ferreira M.D. Associate medical record administrator. [facility]
[2017-05-20] MEDS ORDERED: levoFLOXacin 750 MG TABLET PO SCH (09:00)
== END 2017-05-19 14:24 | disposition hospice, home (50) | DRG 811 ==
LOC: 2ANU 12:06 → EMEROO 12:06 → 2ANU 14:38 → SUATTDRO 18:18
PROVIDERS: ADMIT Internal Medicine Nephrology; ATTEND Internal Medicine